=== PATIENT | female | born 1945 | race Caucasian/White ===

== ENCOUNTER 2016-12-11 16:43 | Emergency (ER) | payer OTHER ==
[~2016-12-11] VITALS: Ht 157.5 cm; Wt 68.0 kg
[~2016-12-11 16:43] MED LIST: CIPR500T4 PO; NEXI40CA PO; PROM25TA5 PO; XANA1TAB6 PO; blood pressure pill PO
[2016-12-11 16:45] VITALS: BP 153/74; PULSE 90; RESP 20; TEMP 99.4; O2SAT 96
[2016-12-11] MEDS ORDERED: PROM25TA5 PO (17:27)
[2016-12-11] MEDS ORDERED: XANA1TAB2 PO (17:27)
[2016-12-11] MEDS ORDERED: UNK BP MED PO (17:27)
--- NOTE | 2016-12-11 17:56 | RADRPT ---
EXAM DATE/TIME: 12/11/2016 17:44 [facility] COMPARISON: No previous studies available for comparison. INDICATIONS : Right wrist pain and inflammation. No known injury MEDICAL HISTORY : None. SURGICAL HISTORY : None. ENCOUNTER: Initial ACUITY: 1 day PAIN SCORE: 7/10 LOCATION: Right wrist. FINDINGS: There is no evidence of fracture or dislocation. Mineralization is normal. There's mild arthritic vidya nge. Mild dorsal soft tissue swelling. CONCLUSION: Soft tissue swelling without definite fracture Zachary Barahona MD on December 11, 2016 at 17:50 Board Certified Radiologist. This report was verified electronically.
[2016-12-11] MEDS ORDERED: KETOROLAC TROMETHAMINE 30 MG/ML (IVP) VIAL IV PUSH ONE (18:00)
[2016-12-11 18:16] LABS: AUTOMATED NEUTROPHIL # 5.3 TH/MM3 (1.8-7.7); BASOPHIL % 0.3 % (0.0-2.0); EOSINOPHIL # 0.1 TH/MM3 (0-0.4); EOSINOPHIL % 1.9 % (0.0-4.0); HEMATOCRIT 42.7 % (35.0-46.0); LYMPHOCYTE # 1.9 TH/MM3 (1.0-4.8); MEAN CELL VOLUME 91.2 FL (80.0-100.0); MEAN CORPUSCULAR HEMOGLOBIN 30.3 PG (27.0-34.0); MEAN CORPUSCULAR HGB CONC 33.2 % (32.0-36.0); MONO % 5.1 % (0.0-8.0); NEUT % 67.7 % (16.0-70.0); PLATELET COUNT 89 TH/MM3 (150-450); RED BLOOD COUNT 4.68 MIL/MM3 (4.00-5.30); RED CELL DISTRIBUTION WIDTH 15.4 % (11.6-17.2); WHITE BLOOD COUNT 7.8 TH/MM3 (4.0-11.0)
[2016-12-11 18:17] LABS: HEMO FLAGS AUTO DIFF
--- NOTE | 2016-12-11 18:29 | PD ---
HPI Chief Complaint: Pain: Acute or Chronic Time Seen by Provider: 18:24 Travel History International Travel<30 days: No Contact w/Intl Traveler<30days: No Traveled to known affect area: No History of Present Illness HPI 71-year-old female that presents to the ED for evaluation of pain and swelling to her right wrist with no injury. Per patient this is been ongoing since Friday. She has not seen anybody for this. Per patient is red and swelling and painful with movement and touch. She has not taken anything for this. She states that the pain is 6 out of 10. She states that she does have a history of gout but she does not believe that his gout because she hasn't had one episode in the last 20 years. She does not take anything to prevent gout. She states that she has not falling or done anything to cause the pain. The patient she reports that for the past 6 years since having surgery by Dr. Das she's been having some discomfort to the scars on her abdomen. Per patient she has never had scars like that before and she is concerned that it might be something else going on. Per patient his been ongoing for 6 years and only gets painful when somebody touches or moves on the scars. States that the pain on the scars is about 6 out of 10 and gets worse when she puts weight on the area or she moves to that side. She denies any bowel movement or urinary issues. No fevers chills or sweats. She has not seen her surgeon for this. She also reports that she's been having some bug bites on her left arm. EEG. Per patient she has noted anywhere else. Nobody else has this. She denies any recent travel. She does have allergies to aspirin, Percodan and sulfa. PFSH Past Medical History Arthritis: Yes Asthma: No Blood Disorders: No Anxiety: Yes Depression: Yes Heart Rhythm Problems: No Cancer: No Cardiac Catheterization: No High Cholesterol: No Chemotherapy: No Chest Pain: No Congestive Heart Failure: No COPD: No Cerebrovascular Accident: No Diabetes: No Diminished Hearing: No Endocrine: No Gastrointestinal Disorders: Yes (HX OF GERD, HIATAL HERNIA REPAIR ) GERD: Yes Genitourinary: No Hepatitis: No Hiatal Hernia: Yes Hypertension: Yes Immune Disorder: No Implanted Vascular Access Dvce: No Musculoskeletal: Yes (BACK/NECK PROBLEMS, CLAUDIO KNEE PROBLEMS,SPINAL STENOSIS, HNP) Neurologic: No Psychiatric: Yes (CLAUSTROPHOBIC) Reproductive: No Respiratory: No Seizures: Yes (FROM DRUG W/D) Thyroid Disease: No Tetanus Vaccination: Unknown Influenza Vaccination: No PNEUMOCCOCAL Vaccine (Year): 2 ?: Not Menopausal: Yes Tubal Ligation: Yes Past Surgical History Abdominal Surgery: Yes (PT STATES THE PT ONLY HAD 3 HERNIA OPERATIONS) AICD: No Appendectomy: Yes Arteriovenous Shunt: No Cardiac Surgery: No Cholecystectomy: Yes Coronary Artery Bypass Graft: No Ear Surgery: No Endocrine Surgery: No Eye Surgery: No Genitourinary Surgery: No Gynecologic Surgery: No Joint Replacement: No Neurologic Surgery: No Oral Surgery: No Pacemaker: No Thoracic Surgery: No Social History Alcohol Use: No Tobacco Use: No Substance Use: No Allergies-Medications (Allergen,Severity, Reaction): Coded Allergies: Percodan (Verified Allergy, Severe, 12/11/16) Sulfa (Verified Allergy, Severe, Itching, 12/11/16) Aspirin (Verified Allergy, Intermediate, 12/11/16) Reported Meds & Prescriptions Reported Meds & Active Scripts Active Diclofenac Sodium DR (Diclofenac Sodium) 75 Mg Tabdr 75 Mg PO BID Permethrin Topical (Permethrin) 5% Cream 1 Applic TOPICAL ONCE Tramadol (Tramadol HCl) 50 Mg Tab 50 Mg PO Q6H PRN Reported [Unk Bp Med] 2.5 Mg PO HS Phenergan (Promethazine HCl) 25 Mg Tab 25 Mg PO ONCE Xanax (Alprazolam) 1 Mg Tab 1 Mg PO Q8H PRN Review of Systems Except as stated in HPI: all other systems reviewed are Neg Physical Exam Narrative GENERAL: SKIN: Warm and dry. Patient does have insect bite like lesions to the left as well as the right arm. More pruritic on the left than the right. No other deformity noted. In addition she has also scars that appear to have healed on the abdomen appeared to be raised plaques that are darker in color to her skin color. There are tender on this area. Pain not reproducible anywhere else. Patient has no other deformity noted. HEAD: Atraumatic. Normocephalic. EYES: Pupils equal and round 4 mm reactive and accommodation. No scleral icterus. No injection or drainage. ENT: No nasal bleeding or discharge. Mucous membranes pink and moist. Tongue is midline. No uvula deviation. NECK: Trachea midline. No JVD. CARDIOVASCULAR: Regular rate and rhythm. No murmurs, S3, S4. RESPIRATORY: No accessory muscle use. Clear to auscultation. Breath sounds equal bilaterally. GASTROINTESTINAL: Abdomen soft, non-tender, nondistended. Hepatic and splenic margins not palpable. MUSCULOSKELETAL: Extremities without clubbing, cyanosis, or edema. No obvious deformities. Full range of motion of the upper and lower extremities with exception of the right wrist which she cannot flex secondary to discomfort. Patient does have an area of erythema and soft tissue swelling on the dorsal aspect of the right wrist. Erythema is blanchable. Slightly warm to touch. No obvious bony deformity noted. Patient has full range of motion of the digits. Patient has 2+ pulses on the radial and volar artery. Good capillary refill of all fingers. Neurovascular intact. NEUROLOGICAL: Awake and alert. No obvious cranial nerve deficits. Motor grossly within normal limits. Five out of 5 muscle strength in the arms and legs. Normal speech. PSYCHIATRIC: Appropriate mood and affect; insight and judgment normal. Data Data Last Documented VS Vital Signs Date Time Temp Pulse Resp B/P Pulse Ox O2 Delivery O2 Flow Rate FiO2 12/11/16 16:45 99.4 90 20 153/74 96 Room Air Orders Wrist, Complete ([id number]) (12/11/16 17:14) Westergren Sedimentation Rate (12/11/16 17:51) Complete Blood Count With Diff (12/11/16 17:51) Ketorolac Inj (Toradol Inj) (12/11/16 18:00) Labs Laboratory Tests Test 12/11/16 17:50 White Blood Count 7.8 TH/MM3 Red Blood Count 4.68 MIL/MM3 Hemoglobin 14.2 GM/DL Hematocrit 42.7 % Mean Corpuscular Volume 91.2 FL Mean Corpuscular Hemoglobin 30.3 PG Mean Corpuscular Hemoglobin 33.2 % Concent Red Cell Distribution Width 15.4 % Platelet Count 89 TH/MM3 Mean Platelet Volume 7.1 FL Neutrophils (%) (Auto) 67.7 % Lymphocytes (%) (Auto) 25.0 % Monocytes (%) (Auto) 5.1 % Eosinophils (%) (Auto) 1.9 % Basophils (%) (Auto) 0.3 % Neutrophils # (Auto) 5.3 TH/MM3 Lymphocytes # (Auto) 1.9 TH/MM3 Monocytes # (Auto) 0.4 TH/MM3 Eosinophils # (Auto) 0.1 TH/MM3 Basophils # (Auto) 0.0 TH/MM3 CBC Comment AUTO DIFF Differential Comment AUTO DIFF CONFIRMED Platelet Estimate LOW Platelet Morphology Comment NORMAL Erythrocyte Sedimentation Rate 53 mm/hr MDM Medical Decision Making Medical Screen Exam Complete: Yes Emergency Medical Condition: Yes Medical Record Reviewed: Yes Interpretation(s) Last Impressions Wrist X-Ray 12/11/16 1714 Signed Impressions: Service Date/Time: Sunday, December 11, 2016 17:44 - CONCLUSION: Soft tissue swelling without definite fracture Zachary Barahona MD CBC Diagram 12/11/16 17:50 ESR of 50 Differential Diagnosis Gout versus fracture versus cellulitis versus chronic pain versus chronic scars versus scabies versus insect bites Narrative Course 71-year-old female that presents to the ED for evaluation of right wrist swelling and pain as well as insect bites as well as painful scars on her abdomen. Patient was properly examined and was found to have signs and symptoms which appear to be more consistent with gout on the right wrist and less likely infectious. Erythema and swelling is blanchable. Patient has no tachycardia or signs of fever. Labs and imaging were ordered. In regards to her insect bites that appear to be related to insects. No sign of other acute disease. At this time I recommend treating with permethrin cream to cover for scabies of the less likely. In regards to her pain on her scars on her abdomen did not see any sign of acute infection. Per patient this is been ongoing for 6 years. Patient specifically asked me to see if I could contact Dr. Das to see if he could come here and see her to evaluate her for the scars. At this time I do not believe that this or infected or the require any acute treatment. I do recommend close follow with Dr. Das since he is the one who did the surgery. She agrees with this. I will give patient information for Dr. Das' s office so she can follow with him for this. In regards to the main complaint which was the right wrist pain and swelling x-ray and labs were essentially unremarkable. Patient was reassured. From history and physical I think that this is likely gout. Patient at this time will be treated with pain medication as well as NSAIDs. She will given a prescription for permethrin cream. Patient agrees with plan. Follow with PCP. See ED if worsening symptoms. Case was discussed with Dr Pulido who agrees with plan. Diagnosis Primary Impression: Gout Qualified Code: M10.041 - Acute idiopathic gout of right hand Additional Impressions: Insect bite Qualified Code: W57.XXXA - Insect bite, initial encounter Painful scar Referrals: Garrett Das MD Patient Instructions: General Instructions Additional Instructions: Follow-up with Dr. Das for years abdominal scars. See ED for worsening symptoms. Take medications as prescribed. Do not drink or drive while taking pain medication. Med/Other Pt SpecificInfo: Prescription(s) given Scripts Diclofenac Sodium DR 75 Mg Tabdr75 Mg PO BID #20 TAB Ref 0 Prov:Tiara Pulido MD 12/11/16 Permethrin Topical 5% Cream1 Applic TOPICAL ONCE #1 TUBE Ref 0 Prov:Tiara Pulido MD 12/11/16 Tramadol 50 Mg Tab50 Mg PO Q6H PRN (PAIN) #14 TAB Ref 0 Prov:Tiara Pulido MD 12/11/16 Disposition: 01 DISCHARGE HOME Condition: Stable Lul Gipson Dec 11, 2016 18:29
[2016-12-11 18:53] LABS: PLATELET ESTIMATE SMEAR LOW (NORMAL); PLATELET MORPHOLOGY NORMAL (NORMAL); SCAN/DIFF AUTO DIFF CONFIRMED
[2016-12-11] MEDS ORDERED: TRAM50TA PO (19:06)
[2016-12-11] MEDS ORDERED: DICL75TA PO (19:06)
[2016-12-11] MEDS ORDERED: PERM5CRE TOPICAL (19:06)
== END 2016-12-11 21:47 | disposition home or self-care (01) ==
LOC: NEPC 16:43
DX: M10.041 Idiopathic gout, right hand (principal); S30.861A Insect bite (nonvenomous) of abdominal wall, initial encounter; W57.XXXA Bitten or stung by nonvenomous insect and other nonvenomous arthropods, initial encounter
CPT/HCPCS: 73110; 85025; 85652; 96374; 99283; J1885

== ENCOUNTER 2016-12-24 05:09 | Inpatient (IN) | payer OTHER, MEDICARE ==
[2016-12-24] VITALS (9 sets, daily range): BP systolic 115–155; BP diastolic 56–67; PULSE 70–86; RESP 16–20; TEMP 98.6; O2SAT 96–99
[~2016-12-24] VITALS: Ht 157.5 cm; Wt 73.0 kg
[~2016-12-24 05:09] MED LIST changes: -CIPR500T4 PO; +DICL75TA PO; -NEXI40CA PO; +PERM5CRE TOPICAL; +TRAM50TA PO; +UNK BP MED PO; +XANA1TAB2 PO; -XANA1TAB6 PO; -blood pressure pill PO
--- NOTE | 2016-12-24 05:43 | PD ---
HPI Chief Complaint: Fall Time Seen by Provider: 05:34 Travel History International Travel<30 days: No Contact w/Intl Traveler<30days: No Traveled to known affect area: No History of Present Illness HPI 71-year-old female was brought in by her son for slurred speech and weakness. Patient's son states that she woke up earlier this morning and went to the bathroom and fell. Patient lives with another relative. Patient's son came over to the house and found patient to be confused, with slurred speech and weakness. Patient was brought by private vehicle to the emergency room. Patient's son states that he first saw the patient about an hour and a half prior to arrival. Patient has history of hypertension. Patient's on reported no history of diabetes or dyslipidemia. Patient is a nonsmoker. No history of previous TIA or CVA. PFSH Past Medical History Arthritis: Yes Asthma: No Blood Disorders: No Anxiety: Yes Depression: Yes Heart Rhythm Problems: No Cancer: No Cardiac Catheterization: No High Cholesterol: No Chemotherapy: No Chest Pain: No Congestive Heart Failure: No COPD: No Cerebrovascular Accident: No Diabetes: No Diminished Hearing: No Endocrine: No GERD: Yes Genitourinary: No Hepatitis: No Hiatal Hernia: Yes Hypertension: Yes Immune Disorder: No Implanted Vascular Access Dvce: No Musculoskeletal: Yes (BACK/NECK PROBLEMS, CLAUDIO KNEE PROBLEMS,SPINAL STENOSIS, HNP) Neurologic: No Psychiatric: Yes (CLAUSTROPHOBIC) Reproductive: No Respiratory: No Seizures: Yes (FROM DRUG W/D) Thyroid Disease: No Tetanus Vaccination: Unknown Influenza Vaccination: No PNEUMOCCOCAL Vaccine (Year): 2 ?: Not Menopausal: Yes Tubal Ligation: Yes Past Surgical History Abdominal Surgery: Yes (PT STATES THE PT ONLY HAD 3 HERNIA OPERATIONS) AICD: No Appendectomy: Yes Arteriovenous Shunt: No Cardiac Surgery: No Cholecystectomy: Yes Coronary Artery Bypass Graft: No Ear Surgery: No Endocrine Surgery: No Eye Surgery: No Genitourinary Surgery: No Gynecologic Surgery: No Joint Replacement: No Neurologic Surgery: No Oral Surgery: No Pacemaker: No Thoracic Surgery: No Other Surgery: Yes Family History Family Myocardial Infarction: Yes (SISTER OPEN HEART) Social History Alcohol Use: No Tobacco Use: No Substance Use: No Allergies-Medications (Allergen,Severity, Reaction): Coded Allergies: Percodan (Verified Allergy, Severe, 12/24/16) Sulfa (Verified Allergy, Severe, Itching, 12/24/16) Aspirin (Verified Allergy, Intermediate, 12/24/16) Reported Meds & Prescriptions Reported Meds & Active Scripts Active Reported [Unk Bp Med] 2.5 Mg PO HS Phenergan (Promethazine HCl) 25 Mg Tab 25 Mg PO ONCE Xanax (Alprazolam) 1 Mg Tab 1 Mg PO Q8H PRN Review of Systems General / Constitutional: No: Fever Eyes: No: Visual changes HENT: No: Headaches Cardiovascular: No: Chest Pain or Discomfort Respiratory: No: Shortness of Breath Gastrointestinal: No: Abdominal Pain Genitourinary: No: Dysuria Musculoskeletal: No: Pain Skin: No Rash Neurologic: Positive: Change in Mentation, Slurred Speech, No: Weakness Psychiatric: No: Depression Endocrine: No: Polydipsia Hematologic/Lymphatic: No: Easy Bruising Physical Exam Narrative GENERAL: Well-nourished, well-developed patient. SKIN: Focused skin assessment warm/dry. HEAD: Normocephalic. EYES: No scleral icterus. No injection or drainage. Pupils 2 mm equal reactive. NECK: Supple, trachea midline. No JVD or lymphadenopathy. CARDIOVASCULAR: Regular rate and rhythm without murmurs, gallops, or rubs. RESPIRATORY: Breath sounds equal bilaterally. No accessory muscle use. GASTROINTESTINAL: Abdomen soft, non-tender, nondistended. MUSCULOSKELETAL: No cyanosis, or edema. BACK: Nontender without obvious deformity. No CVA tenderness. Neurologic exam: Patient is awake with slurred speech. No obvious facial drooping or focal neurological deficit. Deep tendon reflexes 2+ and equal. Negative Babinski. Data Data Last Documented VS Vital Signs Date Time Temp Pulse Resp B/P Pulse Ox O2 Delivery O2 Flow Rate FiO2 12/24/16 05:41 99 Room Air 12/24/16 05:25 83 16 124/59 12/24/16 05:10 98.6 Orders Electrocardiogram (12/24/16 05:34) Complete Blood Count With Diff (12/24/16 05:34) Comprehensive Metabolic Panel (12/24/16 05:34) Prothrombin Time / Inr (Pt) (12/24/16 05:34) Act Partial Throm Time (Ptt) (12/24/16 05:34) Urinalysis - C+S If Indicated (12/24/16 05:34) Chest, Single Ap (12/24/16 05:34) Ct Brain W/O Iv Contrast(Rout) (12/24/16 05:34) Iv Access Insert/Monitor (12/24/16 05:34) Ecg Monitoring (12/24/16 05:34) Oximetry (12/24/16 05:34) Urinary Catheter Insert/Apply (12/24/16 05:34) Sodium Chlor 0.9% 1000 Ml Inj (Ns 1000 M (12/24/16 05:45) [place] (12/24/16 05:34) Mri Brain W/O Contrast (12/24/16 05:55) Mra Brain W/O Contrast (Cow) (12/24/16 05:55) Mra Carotids W Contrast (12/24/16 05:55) Aspirin Supp (Aspirin Supp) (12/24/16 06:00) Labs Laboratory Tests Test 12/24/16 05:40 White Blood Count 7.4 TH/MM3 Red Blood Count 4.24 MIL/MM3 Hemoglobin 12.9 GM/DL Hematocrit 38.6 % Mean Corpuscular Volume 91.1 FL Mean Corpuscular Hemoglobin 30.3 PG Mean Corpuscular Hemoglobin 33.3 % Concent Red Cell Distribution Width 15.5 % Platelet Count 103 TH/MM3 Mean Platelet Volume 7.1 FL Neutrophils (%) (Auto) 56.1 % Lymphocytes (%) (Auto) 35.5 % Monocytes (%) (Auto) 4.5 % Eosinophils (%) (Auto) 3.0 % Basophils (%) (Auto) 0.9 % Neutrophils # (Auto) 4.2 TH/MM3 Lymphocytes # (Auto) 2.6 TH/MM3 Monocytes # (Auto) 0.3 TH/MM3 Eosinophils # (Auto) 0.2 TH/MM3 Basophils # (Auto) 0.1 TH/MM3 CBC Comment DIFF FINAL Differential Comment MDM Medical Decision Making Medical Screen Exam Complete: Yes Emergency Medical Condition: Yes Interpretation(s) 5:43 AM. EKG shows sinus rhythm nonspecific ST-T wave change. Differential Diagnosis Differential diagnosis including TIA, CVA, neuropathy, electrolyte imbalance, sepsis. Narrative Course 71-year-old female with unknown time of onset of neurologic symptoms including slurred speech and confusion and generalized weakness. Normal saline solution 70 cc an hour. Head of bed flat. O2 2 L nasal cannula. Diagnosis Primary Impression: Acute CVA (cerebrovascular accident) Admitting Information Admitting Physician Requests: Admit Que Colbert MD Dec 24, 2016 05:43
[2016-12-24 05:55] LABS: AUTOMATED NEUTROPHIL # 4.2 TH/MM3 (1.8-7.7); BASOPHIL # 0.1 TH/MM3 (0-0.2); BASOPHIL % 0.9 % (0.0-2.0); EOSINOPHIL # 0.2 TH/MM3 (0-0.4); HEMATOCRIT 38.6 % (35.0-46.0); HEMO FLAGS DIFF FINAL; LYMPH % 35.5 % (9.0-44.0); LYMPHOCYTE # 2.6 TH/MM3 (1.0-4.8); MEAN CELL VOLUME 91.1 FL (80.0-100.0); MEAN CORPUSCULAR HEMOGLOBIN 30.3 PG (27.0-34.0); MEAN CORPUSCULAR HGB CONC 33.3 % (32.0-36.0); MONO % 4.5 % (0.0-8.0); NEUT % 56.1 % (16.0-70.0); PLATELET COUNT 103 TH/MM3 (150-450); RED BLOOD COUNT 4.24 MIL/MM3 (4.00-5.30); RED CELL DISTRIBUTION WIDTH 15.5 % (11.6-17.2); WHITE BLOOD COUNT 7.4 TH/MM3 (4.0-11.0)
[2016-12-24] MEDS ORDERED: ASPIRIN 300 MG SUPP RECTAL ONE (06:00)
--- NOTE | 2016-12-24 06:00 | RADRPT ---
EXAM DATE/TIME: 12/24/2016 05:45 [facility] COMPARISON: CT BRAIN W/O CONTRAST, November 26, 2015, 15:38. INDICATIONS : Fall. Altered mental status. RADIATION DOSE: 37.30 CTDIvol (mGy) MEDICAL HISTORY : Hypertension. Gastroesophageal reflux disease. Hernia, hiatal. SURGICAL HISTORY : Appendectomy. Cholecystectomy.Tubal ligation. ENCOUNTER: Initial ACUITY: 1 day PAIN SCALE: 0/10 LOCATION: cranial TECHNIQUE: Multiple contiguous axial images were obtained of the head. Using automated exposure control and adj ustment of the mA and/or kV according to patient size, radiation dose was kept as low as reasonably a chievable to obtain optimal diagnostic quality images. FINDINGS: CEREBRUM: The ventricles are normal for age. No evidence of midline shift, mass lesion, hemorrhage or acute in farction. No extra-axial fluid collections are seen. POSTERIOR FOSSA: The cerebellum and brainstem are intact. The 4th ventricle is midline. The cerebellopontine angle i s unremarkable. EXTRACRANIAL: The visualized portion of the orbits is intact. SKULL: The calvaria is intact. No evidence of skull fracture. CONCLUSION: Normal examination. Riley Delgado MD on December 24, 2016 at 5:58 Board Certified Radiologist. This report was verified electronically.
[2016-12-24 06:07] LABS: APTT (PATIENT) 29.1 SEC (24.3-30.1); PROTHROMBIN TIME - PATIENT 10.7 SEC (9.8-11.6)
[2016-12-24] MEDS: SODIUM CHLOR 0.9% 1000 ML INJ 1,000 ML IV SCH ×5 (06:07→21:59)
--- NOTE | 2016-12-24 06:15 | RADRPT ---
EXAM DATE/TIME: 12/24/2016 05:47 [facility] COMPARISON: No previous studies available for comparison. INDICATIONS : Shortness of breath. MEDICAL HISTORY : Hypertension. Gastroesophageal reflux disease. SURGICAL HISTORY : None. ENCOUNTER: Initial ACUITY: 1 day PAIN SCORE: Non-responsive. LOCATION: Bilateral chest FINDINGS: A single view of the chest demonstrates the lungs to be symmetrically aerated without evidence of mas s, infiltrate or effusion. The cardiomediastinal contours are unremarkable. Osseous structures are intact. Tortuous aorta with marked atherosclerotic calcifications CONCLUSION: Small lung volumes bilaterally. No infiltrate or mass. Riley Delgado MD on December 24, 2016 at 6:13 Board Certified Radiologist. This report was verified electronically.
[2016-12-24 06:23] LABS: ALT (GPT) 37 U/L (10-53); ANION GAP 8 MEQ/L (5-15); AST (GOT) 32 U/L (15-37); BICARBONATE 25.9 MEQ/L (21.0-32.0); BLOOD UREA NITROGEN 11 MG/DL (7-18); CHLORIDE 106 MEQ/L (98-107); GLOMERULAR FILTRATION RATE 83 ML/MIN (>89); POTASSIUM 4.2 MEQ/L (3.5-5.1); SODIUM (NA) 140 MEQ/L (136-145)
[2016-12-24 06:26] LABS: ALKALINE PHOSPHATASE 176 U/L (45-117); TOTAL BILIRUBIN ADULT 0.2 MG/DL (0.2-1.0)
[2016-12-24 06:53] LABS: BLOOD, URINE NEG (NEG); GLUCOSE,URINE NEG (NEG); KETONE, URINE NEG (NEG); NITRITE,URINE NEG (NEG); PH, URINE 5.5 (5.0-8.5); SQUAMOUS EPITHELIAL CELL URINE <1 /hpf (0-5); URINE COLOR LIGHT-YELLOW (YELLW/STRAW)
[2016-12-24 07:01] LABS: COMMENT (UR) CULT NOT INDICATED; CULTURE IF INDICATED CULT NOT INDICATED
[2016-12-24] MEDS ORDERED: NALOXONE HCL 0.4 MG/ML AMP IV PRN (07:30)
[2016-12-24] MEDS ORDERED: SODIUM CHLORIDE 0.9% FLUSH 10 ML FLUSH IV FLUSH PRN (07:30)
[2016-12-24] MEDS: ENOXAPARIN SODIUM 40 MG/0.4 ML SYRINGE SQ SCH (07:30)
[2016-12-24] MEDS ORDERED: ONDANSETRON HCL 4 MG/2 ML VIAL IVP PRN (07:30)
[2016-12-24] MEDS ORDERED: DEXTROSE 50% IN WATER 50 ML VIAL(D50) IV PUSH PRN (07:30)
[2016-12-24] MEDS ORDERED: ACETAMINOPHEN 325 MG TAB PO PRN (07:30)
[2016-12-24] MEDS ORDERED: BISACODYL 10 MG SUPP RECTAL PRN (07:30)
[2016-12-24] MEDS: DOCUSATE SODIUM 100 MG CAP PO SCH ×2 (07:30→20:10)
[2016-12-24] MEDS ORDERED: GLUCAGON 1 MG/ML VIAL IM/SQ PRN (07:30)
--- NOTE | 2016-12-24 07:41 | EKG ---
Date Performed: 12/24/2016 Time Performed: 05:30:52 PTAGE: 71 years EKG: Sinus rhythm NORMAL ECG NO PREVIOUS TRACING DOCTOR: Amarjit Jiménez Interpretating Date/Time 12/24/2016 07:39:05
--- NOTE | 2016-12-24 08:04 | HHI.HP ---
[facility] Primary Care Physician Zachary Mckeon M.D. Admission Diagnosis acute CVA Diagnoses: Chief Complaint: Slurred speech and Status post fall. Travel History International Travel<30 Days: No Contact w/Intl Traveler <30 Da: No Traveled to Known Affected Are: No History of Present Illness This is a pleasant 71 y/o Female with GERD, Hiatal hernia status post Whipple procedure, Depression Anxiety Disorder, Gout, Hypertension, Asthma, Previous Cardiac Cath 2002 with possible CAD, Anemia Degenerative Disc disease and spinal stenosis, Thrombocytopenia, Previous Admissions for Benzodiazepine Withdrawal, history of Back Surgery, Cholecystectomy, Gastric volvulus, partial Small Bowel Resection admitted also in the past status post fall, on this opportunity she was brought in by her Son for Slurred speech and weakness, Patient's son states that she woke up earlier this morning and went to the bathroom and fell. Patient lives with another relative. Patient's son came over to the house and found patient to be confused, with slurred speech and weakness. Patient was brought by private vehicle to the emergency room. Patient's son states that he first saw the patient about an hour and a half prior to arrival.Patient's on reported no history of diabetes or dyslipidemia. Patient is a nonsmoker. No history of previous TIA or CVA. patient seen in the Emergency Room in the presence of her Son Mr. Marino Torres, as per patient she had a mechanical fall, no previous signs like dizziness, Lightheadedness. her son found her Confused and disoriented once he arrived to her home where she lives with her Adopted Daughter, 15 years of age, he was called at 4:30 am. when she refused to go to the hospital with EMS. Past Family Social History Past Medical History GERD Hiatal hernia for which she had Whipple procedure Depression Gout Anxiety Hypertension Asthma Previous cardiac catheterization in 2002 with possible coronary artery disease Degenerative disc disease and spinal stenosis Gastritis. Thrombocytopenia Anemia. Previous admissions for benzodiazepine withdrawal Past Surgical History Back surgery, cholecystectomy. Gastric volvulus. Partial small bowel resection. Appendectomy Reported Medications Reported Meds & Active Scripts Active Reported [Unk Bp Med] 2.5 Mg PO HS Phenergan (Promethazine HCl) 25 Mg Tab 25 Mg PO ONCE Xanax (Alprazolam) 1 Mg Tab 1 Mg PO Q8H PRN Allergies: Coded Allergies: Percodan (Verified Allergy, Severe, 12/24/16) Sulfa (Verified Allergy, Severe, Itching, 12/24/16) Aspirin (Verified Allergy, Intermediate, 12/24/16) Active Ordered Medications Current Medications Medications (Trade) Dose Ordered Sig/Danny Route Start Time Stop Time Status Last Admin Sodium Chloride 1,000 ml @ 70 mls/hr [id number] IV 12/24/16 05:45 12/24/16 06:07 (NS 1000 ml Inj) 1,000 ml @ 100 mls/hr Q10H IV 12/24/16 07:28 (NS Flush) 2 ml UNSCH PRN IV FLUSH 12/24/16 07:30 (NS Flush) 2 ml BID IV FLUSH 12/24/16 09:00 (Tylenol) 650 mg Q4H PRN PO 12/24/16 07:30 (Zofran Inj) 4 mg Q6H PRN IVP 12/24/16 07:30 (Dulcolax Supp) 10 mg DAILY PRN RECTAL 12/24/16 07:30 (Colace) 100 mg Q12H PO 12/24/16 07:30 (Lovenox Inj) 40 mg Q24H SQ 12/24/16 07:30 UNV (Narcan Inj) 0.4 mg UNSCH PRN IV 12/24/16 07:30 (Aspirin) 325 mg DAILY PO 12/25/16 09:00 UNV (D50w (Vial) Inj) 25 ml UNSCH PRN IV PUSH 12/24/16 07:30 (Glucagon Inj) 1 mg UNSCH PRN IM/SQ 12/24/16 07:30 Family History Sister with CAD Father with CAD Social History Lives in an apartment with her Adopted Daughter 15 years of age Denies any toxic habits. Physical Exam Vital Signs Vital Signs Date Time Temp Pulse Resp B/P Pulse Ox O2 Delivery O2 Flow Rate FiO2 12/24/16 05:41 99 Room Air 12/24/16 05:25 83 16 124/59 97 Room Air 12/24/16 05:10 98.6 86 18 132/62 96 Physical Exam GENERAL: This is a well-nourished, well-developed patient, in no apparent distress. SKIN: No rashes, ecchymoses or lesions. Cool and dry. HEAD: Atraumatic. Normocephalic. No temporal or scalp tenderness. EYES: Pupils equal round and reactive. Extraocular motions intact. No scleral icterus. No injection or drainage. ENT: Nose without bleeding, purulent drainage or septal hematoma. NECK: Trachea midline. No JVD or lymphadenopathy. Supple, nontender, no meningeal signs. CARDIOVASCULAR: Regular rate and rhythm without murmurs, gallops, or rubs. RESPIRATORY: Clear to auscultation. Breath sounds equal bilaterally. No wheezes , rales, or rhonchi. GASTROINTESTINAL: Abdomen soft, non-tender, nondistended. No hepato-splenomegaly , or palpable masses. No guarding. MUSCULOSKELETAL: Extremities without clubbing, cyanosis, or edema. NEUROLOGICAL: Awake and alert. Cranial nerves II through XII intact. Slurred speech Laboratory Laboratory Tests Test 12/24/16 12/24/16 05:40 06:00 White Blood Count 7.4 Red Blood Count 4.24 Hemoglobin 12.9 Hematocrit 38.6 Mean Corpuscular Volume 91.1 Mean Corpuscular Hemoglobin 30.3 Mean Corpuscular Hemoglobin 33.3 Concent Red Cell Distribution Width 15.5 Platelet Count 103 Mean Platelet Volume 7.1 Neutrophils (%) (Auto) 56.1 Lymphocytes (%) (Auto) 35.5 Monocytes (%) (Auto) 4.5 Eosinophils (%) (Auto) 3.0 Basophils (%) (Auto) 0.9 Neutrophils # (Auto) 4.2 Lymphocytes # (Auto) 2.6 Monocytes # (Auto) 0.3 Eosinophils # (Auto) 0.2 Basophils # (Auto) 0.1 CBC Comment DIFF FINAL Differential Comment Prothrombin Time 10.7 Prothromb Time International 1.0 Ratio Activated Partial 29.1 Thromboplast Time Sodium Level 140 Potassium Level 4.2 Chloride Level 106 Carbon Dioxide Level 25.9 Anion Gap 8 Blood Urea Nitrogen 11 Creatinine 0.69 Estimat Glomerular Filtration 83 Rate Random Glucose 119 Calcium Level 8.5 Total Bilirubin 0.2 Aspartate Amino Transf 32 (AST/SGOT) Alanine Aminotransferase 37 (ALT/SGPT) Alkaline Phosphatase 176 Total Protein 7.3 Albumin 3.3 Urine Color LIGHT-YELLOW Urine Turbidity CLEAR Urine pH 5.5 Urine Specific [place] 1.006 Urine Protein NEG Urine Glucose (UA) NEG Urine Ketones NEG Urine Occult Blood NEG Urine Nitrite NEG Urine Bilirubin NEG Urine Urobilinogen LESS THAN 2.0 Urine Leukocyte Esterase NEG Urine Squamous Epithelial <1 Cells Microscopic Urinalysis Comment CULT NOT INDICATED Result Diagram: 12/24/16 0540 12/24/16 0540 Imaging Last Impressions Head CT 12/24/16533 Signed Impressions: Service Date/Time: Saturday, December 24, 2016 05:45 - CONCLUSION: Normal examination. Riley Delgado MD Chest X-Ray 12/24/16533 Signed Impressions: Service Date/Time: Saturday, December 24, 2016 05:47 - CONCLUSION: Small lung volumes bilaterally. No infiltrate or mass. Riley Delgado MD Assessment and Plan Assessment and Plan 1. Acute Metabolic Encephalopathy improving probable related to TIA. 2. Status post Fall mechanical fall 3. Questionable TIA, asked for MRI, MRA, negative CT brain, continue Stroke management with Aspirin she has listed Aspirin allergy but already received this medicine in am in Emergency room and no side effects so far Cardiac monitoring, Cardiac Enzymes, Echocardiogram, Neurology consult, Vitamin B12, Folate levels, Seizure precautions, fall precautions. PT. OT and Speech therapy, at this time NPO 4. Anxiety disorder/Depression stable 5. Chronic Pain syndrome/spinal stenosis not taking narcotics at home 6. Hypertension controlled without medicines. 7. Chronic Abdominal pain followed by Doctor Virgen Melissa GI specialist DVT Prophylaxis with Lovenox Code Status Full Code Discussed Condition With Home medications reviewed and initiated as indicated Plan of care has been discussed with the patient and her son Mr. Marino Torres gave me his phone number [phone] and their questions have been answered in detail. Further management of the patient will be dependent on hospital course. Discussed with Emergency Medicine Doctor Morales Sierra MD Dec 24, 2016 08:04
[2016-12-24] MEDS: SODIUM CHLORIDE 0.9% FLUSH 10 ML FLUSH IV FLUSH SCH ×2 (09:00→21:00)
[2016-12-24] MEDS ORDERED: LORazepam 2 MG/ML VIAL IM ONE (09:15)
--- NOTE | 2016-12-24 10:59 | RADRPT ---
EXAM DATE/TIME: 12/24/2016 10:07 [facility] COMPARISON: CT BRAIN W/O CONTRAST, December 24, 2016, 5:45. INDICATIONS : Slurred speech. MEDICAL HISTORY : Hypertension. Seizures. SURGICAL HISTORY : Inguinal hernia repair. ENCOUNTER: Initial ACUITY: 2 day PAIN SCORE: 0/10 LOCATION: Head TECHNIQUE: Multiplanar, multisequence MRI of the brain was performed without contrast. FINDINGS: CEREBRUM: The ventricles are normal for age. No evidence of midline shift, mass lesion, hemorrhage or acute in farction. No extraaxial fluid collections are seen. The pituitary gland and suprasellar cistern are normal in configuration. WHITE MATTER: No significant signal abnormalities are seen in the white matter. POSTERIOR FOSSA: The cerebellum and brainstem are intact. The 4th ventricle is midline. The cerebellopontine angle is unremarkable. The cerebellar tonsils are normal in position. DIFFUSION IMAGING: No focal areas of restricted diffusion are seen. No evidence of acute infarction. EXTRACRANIAL: The visualized portions of the orbits and paranasal sinuses are unremarkable. CONCLUSION: Negative noncontrast MR of the brain. David Little MD on December 24, 2016 at 10:56 Board Certified Radiologist. This report was verified electronically.
[2016-12-24] MEDS: INSULIN ASPART SUPPLEMENTAL SCALE SQ SCH ×3 (11:00→21:00)
--- NOTE | 2016-12-24 11:01 | RADRPT ---
EXAM DATE/TIME: 12/24/2016 10:07 [facility] COMPARISON: No previous studies available for comparison. INDICATIONS : Slurred speech. MEDICAL HISTORY : Hypertension. Seizures. SURGICAL HISTORY : Inguinal hernia repair. ENCOUNTER: Initial ACUITY: 2 day PAIN SCORE: 0/10 LOCATION: Head Please note a normal MRA of the brain does not entirely exclude the possibility of a small aneurysm, nor the possibility of distal intracranial vessel disease. TECHNIQUE: 3D time of flight MRA was performed. Source images, multiplanar STS MIP, and 3D volume MIP reconstru ctions were reviewed. FINDINGS: There is excellent visualization of the major intracranial arteries out to the second-order branch ve ssels. There is no evidence for aneurysm, vessel truncation or stenosis, and no evidence for vascula r malformation. No flow seen in the anterior communicating artery or in either PCOM. CONCLUSION: 1. No vessel truncation or aneurysm. 2. Incomplete [place] of [place]. David Little MD on December 24, 2016 at 10:57 Board Certified Radiologist. This report was verified electronically.
[2016-12-24] MEDS ORDERED: GADODIAMIDE PF 287 MG/ML 20 ML VIAL (for RAD MRI) IV ONE (11:15)
--- NOTE | 2016-12-24 11:25 | RADRPT ---
EXAM DATE/TIME: 12/24/2016 10:07 [facility] COMPARISON: MRI BRAIN W/O CONTRAST, December 24, 2016, 10:07. INDICATIONS : Stroke. CONTRAST: 20 cc Omniscan (gadodiamide) IV MEDICAL HISTORY : Seizures. Hypertension. SURGICAL HISTORY : Inguinal hernia repair. ENCOUNTER: Initial ACUITY: 2 day PAIN SCORE: 0/10 LOCATION: neck Percent stenosis is calculated using the diameter of the stenotic region over the diameter of the nor mal distal internal carotid artery. TECHNIQUE: Bolus infused MRA of the extracranial circulation was performed using a neurovascular coil. Post pro cessing was performed including rotating subvolume maximum intensity projections of each carotid johnathon ry, rotating full volume maximum intensity projections of both carotid arteries, sagittal and coronal sliding thin slab reformations of each carotid artery, and left oblique sliding thin slab reformatio n through the aortic arch to include the origin of the arch branch vessels.FINDINGS: AORTIC ARCH: There is a three vessel origin of the great vessels from the aorta. No evidence of ostial narrowing. RIGHT CAROTID: Mild eccentric plaque is identified in the proximal internal carotid artery. Mild narrowing in the 30 -49% range as noted. There is no evidence of hemodynamically significant stenosis. LEFT CAROTID: Mild eccentric plaque is identified in the proximal internal carotid artery. There is mild narrowing approximately 30%. There is no evidence of hemodynamically significant stenosis. VERTEBRALS: The vertebral arteries have a symmetric diameter. The vertebral artery origins are not well-visualize d however no stenotic lesions above the origins are seen. CONCLUSION: Mild atherosclerotic vascular disease with [id number] proximal internal carotid artery narrowing on the right and mild internal carotid artery narrowing of the left. Poor visualization of the vertebral artery origins. No evidence of hemodynamically significant stenosis. Familia Sawyer MD on December 24, 2016 at 11:19 Board Certified Radiologist. This report was verified electronically.
[2016-12-24 11:59] LABS: CREATINE KINASE 40 U/L (26-192)
--- NOTE | 2016-12-24 12:11 | MB ---
cc: WANDA MOFFETT M.D. DATE OF CONSULTATION 12/24/2016 DATE OF 1945 AGE [age] years old REASON FOR CONSULTATION TIA most likely. HISTORY OF PRESENT ILLNESS This is a 71-year-old woman who comes in with a fall and slurred speech concerning for TIA. Family member that is in the room states that her speech is greatly improved. PAST MEDICAL HISTORY 1. Reflux. 2. Hiatal hernia, post Whipple procedure. 3. Depression, anxiety. 4. Gout. 5. Hypertension. 6. Asthma. 7. Cardiac cath in 2002 with possible heart disease. 8. Anemia. 9. Spinal stenosis. 10. Thrombocytopenia. 11. She has had from prior admissions with benzodiazepine withdrawal per chart. Apparently she woke up earlier in the morning, went to the bathroom and fell. She lives with her daughter who is a 17-year-old. Apparently the son came and found her confused in the house with some slurring of speech and diffuse weakness, brought her to the ER. He states she is much improved. She denies feeling weak currently. Denies headache, shortness of breath, weakness, numbness or tingling. Denies any speech issues. She admits to hitting her head but denies any cut or pain. PAST SURGICAL HISTORY 1. Back surgery. 2. Cholecystectomy. 3. Gastric volvulus. Partial small bowel resection. 4. Appendectomy. HOME MEDS Reported as Xanax and Phenergan. ALLERGIES PERCODAN. SULFA. ASPIRIN. FAMILY HISTORY Heart disease in the sister and the father. SOCIAL HISTORY Lives with her daughter. Denies any alcohol or tobacco. PHYSICAL EXAMINATION VITALS: Temperature 98.6, pulse 83, respiratory rate 16, blood pressure 124/59, sating at 99% on room air. NECK: Supple. No appreciable bruits. HEART: Regular. LUNGS: Appear clear. NEUROLOGIC: She is awake, alert, oriented. Pupils are reactive. Visual bartholomew full. Face symmetrical. Tongue midline. She admits to some blurring of vision but states she needs to have some eye surgery. No visual field loss. She is not dysarthric nor aphasic. She is edentulous. Motor: No drift or leg lag. Cerebellar intact. DTRs are 1+, sensory normal. Toes are both downgoing. Gait is withheld at this time. LABORATORY DATA Labs are reviewed. Her platelet count is 103,000. Coag panel was unremarkable. Chemistries: Glucose 119, alk phos 176, albumin 3.3. Urine is negative. She did have a chest x-ray that shows small lung volumes bilaterally but no infiltration or mass. CT of the head was unremarkable. IMPRESSION Status post fall, etiology unknown. Possible TIA. RECOMMENDATIONS 1. As discussed with the ED physician, recommend getting a TIA workup. She will have an MRI of the brain, MRA of the [place] of [place], carotid ultrasound, 2-D echo. Will get a lipid panel. 2. THERE IS SOME ALLERGY TO ASPIRIN. I am not sure what it is but if it is GI upset, then certainly a baby aspirin can be initiated. 3. Lovenox for DVT prophylaxis. 4. Permissible hypertension. 5. PT, OT, speech therapy evaluation. 6. Depending on the findings at this point in time, further recommendations will be made accordingly. She may need telemetry, she may need a Holter monitor as well and further recommendations to be made accordingly. MD JEFFERY Barbosa/JUNE /9:46 AM /12:01 PM
--- NOTE | 2016-12-24 15:36 | EC ---
Study Study Date:12/24/2016 STUDY CONCLUSIONS SUMMARY - Left ventricle: The cavity size was normal. Wall thickness was normal. Systolic function was normal. The estimated ejection fraction was in the range of 55% to 60%. Wall motion was normal; there were no regional wall motion abnormalities. - Aortic valve: Valve area: 2.44cm^2 (Vmax). If LV function is below 40, please consider prescribing an ACEI or ARB or document rationale for non-use. PROCEDURE DATA STUDY STATUS: Elective. Procedure: Transthoracic echocardiography. Image quality was poor. Scanning was performed from the parasternal acoustic windows. Study completion: The patient tolerated the procedure well. Transthoracic echocardiography. M-mode, complete 2D, complete spectral Doppler, and color Doppler. Height: Height: 62in. Weight: Weight: 159.7lb. Body mass index: BMI: 29.3kg/m^2. Body surface area: BSA: 1.74m^2. Patient status: Inpatient. CARDIAC ANATOMY LEFT VENTRICLE: The cavity size was normal. Wall thickness was normal. Systolic function was normal. The estimated ejection fraction was in the range of 55% to 60%. Wall motion was normal; there were no regional wall motion abnormalities. AORTIC VALVE: Trileaflet; normal thickness leaflets. Doppler: Transvalvular velocity was within the normal range. There was no stenosis. No regurgitation. Valve area: 2.44cm^2 (Vmax). Indexed valve area: 1.4cm^2/m^2 (Vmax). AORTA: Aortic root: The aortic root was normal in size. MITRAL VALVE: Structurally normal valve. Doppler: Transvalvular velocity was within the normal range. There was no evidence for stenosis. No regurgitation. Peak gradient: 3mm Hg (D). LEFT ATRIUM: The atrium was normal in size. RIGHT VENTRICLE: The cavity size was normal. Wall thickness was normal. PULMONIC VALVE: Doppler: Transvalvular velocity was within the normal range. There was no evidence for stenosis. No regurgitation. TRICUSPID VALVE: Structurally normal valve. Doppler: Transvalvular velocity was within the normal range. Trace to mild regurgitation. PULMONARY ARTERY: The main pulmonary artery was normal-sized. Systolic pressure was within the normal range. RIGHT ATRIUM: The atrium was normal in size. PERICARDIUM: There was no pericardial effusion. SYSTEMIC VEINS: Inferior vena cava: The vessel was normal in size. Patient weight: 159.7lb _Ejection fraction:_ 65-75% _Fractional shortening:_ 32% up to 5Kg 5-11.5Kg 11.6-22.9Kg 23-45Kg 45-57Kg Aortic Root 7-13 <17 13-22 17-27 17-27 LA diam 6-13 <23 24-38 33-47 37-40 RVID 10-17 7-15 7-15 7-18 8-17 LVIDd 12-22 <32 24-38 33-47 37-40 LVPW 2-4 3-6 5-7 6-8 7-8 IVS 2-4 3-6 5-7 6-8 7-8 BASIC MEASUREMENTS ADULT NORMAL Left ventricle LV internal dimension, ED, chordal 44.3 mm 43-52 level, PLAX LV internal dimension, ES, chordal 33.1 mm 23-38 level, PLAX Fractional shortening, chordal level, *25 % >29 PLAX LV posterior wall thickness, ED 10 mm IVS/LVPW ratio, ED 0.96 <1.3 Ventricular septum Septal thickness, ED 9.56 mm Aortic valve Leaflet separation 15 mm 15-26 BASIC MEASUREMENTS ADULT NORMAL Aortic valve Leaflet separation 15 mm 15-26 Aorta Root diameter, ED 30 mm 20-37 Left atrium Anterior-posterior dimension, ES 29 mm 19-40 Anterior-posterior dimension index, ES 1.67 cm/m^2 <2.2 LA/aortic root ratio 0.97 DOPPLER MEASUREMENTS ADULT NORMAL Main pulmonary artery Pressure, S 19 mm Hg =30 Aortic valve Peak velocity, S 143 cm/s Valve area, Vmax 2.44 cm^2 Valve area index, Vmax 1.4 cm^2/m^2 Mitral valve Peak E-wave velocity 91.3 cm/s Peak A-wave velocity 116 cm/s Deceleration time 204 ms 150-230 Peak gradient, D 3 mm Hg Peak E/A ratio 0.8 Tricuspid valve Regurgitant peak velocity 179 cm/s Peak RV-RA gradient, S 13 mm Hg Maximal regurgitant velocity 179 cm/s Systemic veins Estimated CVP 10 mm Hg Right ventricle RV pressure, S 23 mm Hg <30 Pulmonic valve Peak velocity, S 93.7 cm/s LEGEND: Mean values are shown as u=mean value. Asterisk (*) chan values outside specified normal range. Prepared and signed by Charity Echevarria [id number]
[2016-12-24 20:51] LABS: HEMOGLOBIN A1a 1.3 %; HEMOGLOBIN A1b 1.8 %; HEMOGLOBIN Ao 85.6 %; HEMOGLOBIN LA1C 1.7 %; HEMOGLOBIN P3 3.4 %
[2016-12-25] VITALS (8 sets, daily range): BP systolic 121–169; BP diastolic 60–76; PULSE 69–79; RESP 16–19; TEMP 95.7–97.5; O2SAT 70–99
[2016-12-25] MEDS: ALPRAZolam 1 MG TAB PO PRN ×2 (00:01→23:52)
[2016-12-25 01:27] LABS: CREATINE KINASE 122 U/L (26-192)
[2016-12-25 06:04] LABS: AUTOMATED NEUTROPHIL # 3.5 TH/MM3 (1.8-7.7); BASOPHIL % 0.5 % (0.0-2.0); EOSINOPHIL # 0.2 TH/MM3 (0-0.4); EOSINOPHIL % 3.6 % (0.0-4.0); HEMATOCRIT 39.4 % (35.0-46.0); HEMO FLAGS DIFF FINAL; LYMPH % 41.7 % (9.0-44.0); LYMPHOCYTE # 2.9 TH/MM3 (1.0-4.8); MEAN CELL VOLUME 90.3 FL (80.0-100.0); MEAN CORPUSCULAR HEMOGLOBIN 30.6 PG (27.0-34.0); MEAN CORPUSCULAR HGB CONC 33.9 % (32.0-36.0); MONO % 3.8 % (0.0-8.0); NEUT % 50.4 % (16.0-70.0); PLATELET COUNT 104 TH/MM3 (150-450); RED BLOOD COUNT 4.37 MIL/MM3 (4.00-5.30); RED CELL DISTRIBUTION WIDTH 15.4 % (11.6-17.2); WHITE BLOOD COUNT 6.9 TH/MM3 (4.0-11.0)
[2016-12-25] MEDS: INSULIN ASPART SUPPLEMENTAL SCALE SQ SCH ×4 (07:00→21:00)
[2016-12-25] MEDS: DOCUSATE SODIUM 100 MG CAP PO SCH ×2 (07:30→19:30)
[2016-12-25 08:07] LABS: INDIRECT BILIRUBIN 0.3 MG/DL (0.0-0.8); TOTAL BILIRUBIN ADULT 0.4 MG/DL (0.2-1.0)
[2016-12-25 08:08] LABS: BICARBONATE 28.7 MEQ/L (21.0-32.0); HDL CHOLESTEROL 40.1 MG/DL (40.0-60.0); POTASSIUM 4.1 MEQ/L (3.5-5.1)
[2016-12-25] MEDS: SODIUM CHLORIDE 0.9% FLUSH 10 ML FLUSH IV FLUSH SCH ×2 (08:15→23:51)
[2016-12-25] MEDS: ASPIRIN 325 MG TAB PO SCH (08:24)
[2016-12-25] MEDS: ENOXAPARIN SODIUM 40 MG/0.4 ML SYRINGE SQ SCH (08:25)
--- NOTE | 2016-12-25 08:51 | HHI.PR ---
Subjective Remarks This is a pleasant 71 y/o Female with GERD, Hiatal hernia status post Whipple procedure, Depression Anxiety Disorder, Gout, Hypertension, Asthma, Previous Cardiac Cath 2003 with possible CAD, Anemia Degenerative Disc disease and spinal stenosis, Thrombocytopenia, Previous Admissions for Benzodiazepine Withdrawal, history of Back Surgery, Cholecystectomy, Gastric volvulus, partial Small Bowel Resection admitted also in the past status post fall, on this opportunity she was brought in by her Son for Slurred speech and weakness, Patient's son states that she woke up earlier this morning and went to the bathroom and fell. Patient lives with another relative. Patient's son came over to the house and found patient to be confused, with slurred speech and weakness. Patient was brought by private vehicle to the emergency room. Patient's son states that he first saw the patient about an hour and a half prior to arrival.Patient's on reported no history of diabetes or dyslipidemia. Patient is a nonsmoker. No history of previous TIA or CVA. patient seen in the Emergency Room in the presence of her Son Mr. Marino Torres, as per patient she had a mechanical fall, no previous signs like dizziness, Lightheadedness. her son found her Confused and disoriented once he arrived to her home where she lives with her Adopted Daughter, 15 years of age, he was called at 4:30 am. when she refused to go to the hospital with EMS. 12/25: Seen in her bedroom Removed Jackman Catheter, No nausea, vomit or diarrhea. Objective Vital Signs Date Time Temp Pulse Resp B/P Pulse Ox O2 Delivery O2 Flow Rate FiO2 12/25/16 08:13 75 18 121/60 91 Room Air 12/25/16 08:13 97 Nasal Cannula 2 12/25/16 06:15 70 18 133/71 95 12/25/16 02:00 73 16 129/73 96 Room Air 12/24/16 21:30 70 18 139/61 97 12/24/16 20:23 73 18 142/63 97 12/24/16 16:19 76 20 155/67 99 12/24/16 13:25 70 20 116/56 98 Room Air 12/24/16 11:08 70 17 115/56 97 Room Air I/O 12/24/16 12/24/16 12/24/16 12/25/16 12/25/16 12/25/16 07:00 15:00 23:00 07:00 15:00 23:00 Output Total 3000 ml 1400 ml Balance -3000 ml -1400 ml Output Urine Total 3000 ml 1400 ml # Voids 0 Result Diagram: 12/25/1651712/25/16517 Imaging Last Impressions Neck Magnetic Resonance Angiography 12/24/16554 Signed Impressions: Service Date/Time: Saturday, December 24, 2016 10:07 - CONCLUSION: Mild atherosclerotic vascular disease with [id number] proximal internal carotid artery narrowing on the right and mild internal carotid artery narrowing of the left. Poor visualization of the vertebral artery origins. No evidence of hemodynamically significant stenosis. Familia Sawyer MD Head Magnetic Resonance Angiography 12/24/16554 Signed Impressions: Service Date/Time: Saturday, December 24, 2016 10:07 - CONCLUSION: 1. No vessel truncation or aneurysm. 2. Incomplete [place]. David Little MD Brain MRI 12/24/16554 Signed Impressions: Service Date/Time: Saturday, December 24, 2016 10:07 - CONCLUSION: Negative noncontrast MR of the brain. David Little MD Head CT 12/24/16533 Signed Impressions: Service Date/Time: Saturday, December 24, 2016 05:45 - CONCLUSION: Normal examination. Riley Delgado MD Chest X-Ray 12/24/16533 Signed Impressions: Service Date/Time: Saturday, December 24, 2016 05:47 - CONCLUSION: Small lung volumes bilaterally. No infiltrate or mass. Riley Delgado MD Procedures No procedures performed. Other Results Laboratory Tests Test 12/24/16 12/24/16 12/24/16 12/24/16 05:40 06:00 11:13 20:50 Activated Partial 29.1 SEC Thromboplast Time Urine Color LIGHT-YELLOW Urine Turbidity CLEAR Urine pH 5.5 Urine Specific [place] 1.006 Urine Protein NEG mg/dL Urine Glucose (UA) NEG mg/dL Urine Ketones NEG mg/dL Urine Occult Blood NEG Urine Nitrite NEG Urine Bilirubin NEG Urine Urobilinogen LESS THAN 2.0 MG/DL Urine Leukocyte Esterase NEG Urine Squamous Epithelial <1 /hpf Cells Microscopic Urinalysis Comment CULT NOT INDICATED Vitamin B12 Level 272 PG/ML Folate 4.1 NG/ML Hemoglobin A1c 5.7 % Total Creatine Kinase 122 U/L Troponin I LESS THAN 0.02 NG/ML Test 12/25/16 05:18 White Blood Count 6.9 TH/MM3 Red Blood Count 4.37 MIL/MM3 Hemoglobin 13.4 GM/DL Hematocrit 39.4 % Mean Corpuscular Volume 90.3 FL Mean Corpuscular Hemoglobin 30.6 PG Mean Corpuscular Hemoglobin 33.9 % Concent Red Cell Distribution Width 15.4 % Platelet Count 104 TH/MM3 Mean Platelet Volume 7.0 FL Neutrophils (%) (Auto) 50.4 % Lymphocytes (%) (Auto) 41.7 % Monocytes (%) (Auto) 3.8 % Eosinophils (%) (Auto) 3.6 % Basophils (%) (Auto) 0.5 % Neutrophils # (Auto) 3.5 TH/MM3 Lymphocytes # (Auto) 2.9 TH/MM3 Monocytes # (Auto) 0.3 TH/MM3 Eosinophils # (Auto) 0.2 TH/MM3 Basophils # (Auto) 0.0 TH/MM3 CBC Comment DIFF FINAL Differential Comment Prothrombin Time 11.0 SEC Prothromb Time International 1.0 RATIO Ratio Sodium Level 143 MEQ/L Potassium Level 4.1 MEQ/L Chloride Level 108 MEQ/L Carbon Dioxide Level 28.7 MEQ/L Anion Gap 6 MEQ/L Blood Urea Nitrogen 9 MG/DL Creatinine 0.58 MG/DL Estimat Glomerular Filtration 102 ML/MIN Rate Random Glucose 89 MG/DL Calcium Level 8.7 MG/DL Total Bilirubin 0.4 MG/DL Direct Bilirubin 0.1 MG/DL Indirect Bilirubin 0.3 MG/DL Aspartate Amino Transf 38 U/L (AST/SGOT) Alanine Aminotransferase 37 U/L (ALT/SGPT) Alkaline Phosphatase 154 U/L Total Protein 7.3 GM/DL Albumin 3.4 GM/DL Triglycerides Level 132 MG/DL Cholesterol Level 206 MG/DL LDL Cholesterol 140 MG/DL HDL Cholesterol 40.1 MG/DL Cholesterol/HDL Ratio 5.13 RATIO Objective Remarks GENERAL: This is a well-nourished, well-developed patient, in no apparent distress. SKIN: No rashes, ecchymoses or lesions. Cool and dry. HEAD: Atraumatic. Normocephalic. No temporal or scalp tenderness. EYES: Pupils equal round and reactive. Extraocular motions intact. No scleral icterus. No injection or drainage. ENT: Nose without bleeding, purulent drainage or septal hematoma. NECK: Trachea midline. No JVD or lymphadenopathy. Supple, nontender, no meningeal signs. CARDIOVASCULAR: Regular rate and rhythm without murmurs, gallops, or rubs. RESPIRATORY: Clear to auscultation. Breath sounds equal bilaterally. No wheezes , rales, or rhonchi. GASTROINTESTINAL: Abdomen soft, non-tender, nondistended. No hepato-splenomegaly , or palpable masses. No guarding. MUSCULOSKELETAL: Extremities without clubbing, cyanosis, or edema. NEUROLOGICAL: Awake and alert. Cranial nerves II through XII intact. Slurred speech Medications and IVs Current Medications Medications (Trade) Dose Ordered Sig/Danny Route Start Time Stop Time Status Last Admin Sodium Chloride 1,000 ml @ 70 mls/hr [id number] IV 12/24/16 05:45 12/24/16 20:10 (NS 1000 ml Inj) 1,000 ml @ 100 mls/hr Q10H IV 12/24/16 07:28 12/24/16 17:28 (NS Flush) 2 ml UNSCH PRN IV FLUSH 12/24/16 07:30 (NS Flush) 2 ml BID IV FLUSH 12/24/16 09:00 12/24/16 21:00 (Tylenol) 650 mg Q4H PRN PO 12/24/16 07:30 (Zofran Inj) 4 mg Q6H PRN IVP 12/24/16 07:30 (Dulcolax Supp) 10 mg DAILY PRN RECTAL 12/24/16 07:30 (Colace) 100 mg Q12H PO 12/24/16 07:30 12/24/16 20:10 (Lovenox Inj) 40 mg Q24H SQ 12/24/16 07:30 12/25/16 08:25 (Narcan Inj) 0.4 mg UNSCH PRN IV 12/24/16 07:30 (Aspirin) 325 mg DAILY PO 12/25/16 09:00 (D50w (Vial) Inj) 25 ml UNSCH PRN IV PUSH 12/24/16 07:30 (Glucagon Inj) 1 mg UNSCH PRN IM/SQ 12/24/16 07:30 (Xanax) 1 mg Q8H PRN PO 12/24/16 08:00 12/25/16 00:01 A/P Assessment and Plan 1. Acute Metabolic Encephalopathy improving probable related to TIA. Improved. 2. Status post Fall mechanical fall 3. Questionable TIA, asked for MRI, MRA, negative CT brain, continue Stroke management with Aspirin she has listed Aspirin allergy but already received this medicine in am in Emergency room and no side effects so far Cardiac monitoring, Cardiac Enzymes, Echocardiogram, Neurology consult, Vitamin B12, Folate levels, Seizure precautions, fall precautions. seen by Neurology specialist Doctor Fulop MRI, MRA Carotid Doppler negatives elevated LDL cholesterol needs to be on Statin medicine, Awaiting final recommendations by PT. OT and Neurology 4. Anxiety disorder/Depression stable 5. Chronic Pain syndrome/spinal stenosis not taking narcotics at home 6. Hypertension controlled without medicines. 7. Chronic Abdominal pain followed by Doctor Virgen Melissa GI specialist as outpatient. DVT Prophylaxis with Lovenox Code Status Full Code Discussed Condition With Patient in the room. Discharge Planning When cleared by Neurology specialist Morales Marcos MD Dec 25, 2016 08:51
[2016-12-25] MEDS: SODIUM CHLOR 0.9% 1000 ML INJ 1,000 ML IV SCH ×4 (10:31→23:54)
[2016-12-26 00:43] VITALS: BP 138/70; PULSE 80; RESP 18; TEMP 96.8; O2SAT 98
[2016-12-26 04:57] VITALS: BP 159/67; PULSE 82; RESP 22; TEMP 97.1; O2SAT 94
[2016-12-26] MEDS: INSULIN ASPART SUPPLEMENTAL SCALE SQ SCH ×3 (06:25→15:44)
[2016-12-26] MEDS: DOCUSATE SODIUM 100 MG CAP PO SCH (06:34)
[2016-12-26] MEDS: ENOXAPARIN SODIUM 40 MG/0.4 ML SYRINGE SQ SCH (06:34)
[2016-12-26 08:16] VITALS: BP 101/64; PULSE 69; RESP 18; TEMP 97; O2SAT 97
--- NOTE | 2016-12-26 08:21 | HHI.PR ---
Subjective Remarks This is a pleasant 71 y/o Female with GERD, Hiatal hernia status post Whipple procedure, Depression Anxiety Disorder, Gout, Hypertension, Asthma, Previous Cardiac Cath 2002 with possible CAD, Anemia Degenerative Disc disease and spinal stenosis, Thrombocytopenia, Previous Admissions for Benzodiazepine Withdrawal, history of Back Surgery, Cholecystectomy, Gastric volvulus, partial Small Bowel Resection admitted also in the past status post fall, on this opportunity she was brought in by her Son for Slurred speech and weakness, Patient's son states that she woke up earlier this morning and went to the bathroom and fell. Patient lives with another relative. Patient's son came over to the house and found patient to be confused, with slurred speech and weakness. Patient was brought by private vehicle to the emergency room. Patient's son states that he first saw the patient about an hour and a half prior to arrival.Patient's on reported no history of diabetes or dyslipidemia. Patient is a nonsmoker. No history of previous TIA or CVA. patient seen in the Emergency Room in the presence of her Son Mr. Marino Torres, as per patient she had a mechanical fall, no previous signs like dizziness, Lightheadedness. her son found her Confused and disoriented once he arrived to her home where she lives with her Adopted Daughter, 15 years of age, he was called at 4:30 am. when she refused to go to the hospital with EMS. 12/25: Seen in her bedroom Removed Jackman Catheter, No nausea, vomit or diarrhea. 12/26: Patient stable discussed with nurse Miss Cochran and with patient, no nausea , vomit or diarrhea, Physical Therapy recommended to Discharge on [facility] for Physical Therapy and Skilled nurse, at this time stable Alert and oriented x 3. Objective Vital Signs Date Time Temp Pulse Resp B/P Pulse Ox O2 Delivery O2 Flow Rate FiO2 12/26/16 04:57 97.1 82 22 159/67 94 12/26/16 00:43 96.8 80 18 138/70 98 12/25/16 20:00 97.5 79 18 169/76 96 12/25/16 18:12 96 Nasal Cannula 2.00 12/25/16 16:30 97.2 75 19 130/65 96 12/25/16 13:14 95.7 69 19 150/69 98 12/25/16 12:13 73 18 135/72 99 Nasal Cannula 2 I/O 12/25/16 12/25/16 12/25/16 12/26/16 12/26/16 12/26/16 07:00 15:00 23:00 07:00 15:00 23:00 Intake Total 480 ml 480 ml Output Total 2175 ml Balance -1695 ml 480 ml Intake Oral 480 ml 480 ml Output Urine Total 2175 ml # Voids 2 1 # Bowel Movements 0 0 1 Result Diagram: 12/25/1651712/25/16517 Imaging Last Impressions Neck Magnetic Resonance Angiography 12/24/16554 Signed Impressions: Service Date/Time: Saturday, December 24, 2016 10:07 - CONCLUSION: Mild atherosclerotic vascular disease with [id number] proximal internal carotid artery narrowing on the right and mild internal carotid artery narrowing of the left. Poor visualization of the vertebral artery origins. No evidence of hemodynamically significant stenosis. Familia Sawyer MD Head Magnetic Resonance Angiography 12/24/16554 Signed Impressions: Service Date/Time: Saturday, December 24, 2016 10:07 - CONCLUSION: 1. No vessel truncation or aneurysm. 2. Incomplete [place]. David Little MD Brain MRI 12/24/16554 Signed Impressions: Service Date/Time: Saturday, December 24, 2016 10:07 - CONCLUSION: Negative noncontrast MR of the brain. David Little MD Head CT 12/24/16533 Signed Impressions: Service Date/Time: Saturday, December 24, 2016 05:45 - CONCLUSION: Normal examination. Riley Delgado MD Chest X-Ray 12/24/16533 Signed Impressions: Service Date/Time: Saturday, December 24, 2016 05:47 - CONCLUSION: Small lung volumes bilaterally. No infiltrate or mass. Riley Delgado MD Procedures No procedures performed. Other Results Laboratory Tests Test 12/24/16 12/24/16 12/24/16 12/24/16 05:40 06:00 11:13 20:50 Activated Partial 29.1 SEC Thromboplast Time Urine Color LIGHT-YELLOW Urine Turbidity CLEAR Urine pH 5.5 Urine Specific [place] 1.006 Urine Protein NEG mg/dL Urine Glucose (UA) NEG mg/dL Urine Ketones NEG mg/dL Urine Occult Blood NEG Urine Nitrite NEG Urine Bilirubin NEG Urine Urobilinogen LESS THAN 2.0 MG/DL Urine Leukocyte Esterase NEG Urine Squamous Epithelial <1 /hpf Cells Microscopic Urinalysis Comment CULT NOT INDICATED Vitamin B12 Level 272 PG/ML Folate 4.1 NG/ML Hemoglobin A1c 5.7 % Total Creatine Kinase 122 U/L Troponin I LESS THAN 0.02 NG/ML Test 12/25/16 05:18 White Blood Count 6.9 TH/MM3 Red Blood Count 4.37 MIL/MM3 Hemoglobin 13.4 GM/DL Hematocrit 39.4 % Mean Corpuscular Volume 90.3 FL Mean Corpuscular Hemoglobin 30.6 PG Mean Corpuscular Hemoglobin 33.9 % Concent Red Cell Distribution Width 15.4 % Platelet Count 104 TH/MM3 Mean Platelet Volume 7.0 FL Neutrophils (%) (Auto) 50.4 % Lymphocytes (%) (Auto) 41.7 % Monocytes (%) (Auto) 3.8 % Eosinophils (%) (Auto) 3.6 % Basophils (%) (Auto) 0.5 % Neutrophils # (Auto) 3.5 TH/MM3 Lymphocytes # (Auto) 2.9 TH/MM3 Monocytes # (Auto) 0.3 TH/MM3 Eosinophils # (Auto) 0.2 TH/MM3 Basophils # (Auto) 0.0 TH/MM3 CBC Comment DIFF FINAL Differential Comment Prothrombin Time 11.0 SEC Prothromb Time International 1.0 RATIO Ratio Sodium Level 143 MEQ/L Potassium Level 4.1 MEQ/L Chloride Level 108 MEQ/L Carbon Dioxide Level 28.7 MEQ/L Anion Gap 6 MEQ/L Blood Urea Nitrogen 9 MG/DL Creatinine 0.58 MG/DL Estimat Glomerular Filtration 102 ML/MIN Rate Random Glucose 89 MG/DL Calcium Level 8.7 MG/DL Total Bilirubin 0.4 MG/DL Direct Bilirubin 0.1 MG/DL Indirect Bilirubin 0.3 MG/DL Aspartate Amino Transf 38 U/L (AST/SGOT) Alanine Aminotransferase 37 U/L (ALT/SGPT) Alkaline Phosphatase 154 U/L Total Protein 7.3 GM/DL Albumin 3.4 GM/DL Triglycerides Level 132 MG/DL Cholesterol Level 206 MG/DL LDL Cholesterol 140 MG/DL HDL Cholesterol 40.1 MG/DL Cholesterol/HDL Ratio 5.13 RATIO Objective Remarks GENERAL: This is a well-nourished, well-developed patient, in no apparent distress. SKIN: No rashes, ecchymoses or lesions. Cool and dry. HEAD: Atraumatic. Normocephalic. No temporal or scalp tenderness. EYES: Pupils equal round and reactive. Extraocular motions intact. No scleral icterus. No injection or drainage. ENT: Nose without bleeding, purulent drainage or septal hematoma. NECK: Trachea midline. No JVD or lymphadenopathy. Supple, nontender, no meningeal signs. CARDIOVASCULAR: Regular rate and rhythm without murmurs, gallops, or rubs. RESPIRATORY: Clear to auscultation. Breath sounds equal bilaterally. No wheezes , rales, or rhonchi. GASTROINTESTINAL: Abdomen soft, non-tender, nondistended. No hepato-splenomegaly , or palpable masses. No guarding. MUSCULOSKELETAL: Extremities without clubbing, cyanosis, or edema. NEUROLOGICAL: Awake and alert. Cranial nerves II through XII intact. no focal deficits. Medications and IVs Current Medications Medications (Trade) Dose Ordered Sig/Danny Route Start Time Stop Time Status Last Admin (NS 1000 ml Inj) 1,000 ml @ 100 mls/hr Q10H IV 12/24/16 07:28 12/25/16 23:54 (NS Flush) 2 ml UNSCH PRN IV FLUSH 12/24/16 07:30 (NS Flush) 2 ml BID IV FLUSH 12/24/16 09:00 12/25/16 23:51 (Tylenol) 650 mg Q4H PRN PO 12/24/16 07:30 (Zofran Inj) 4 mg Q6H PRN IVP 12/24/16 07:30 12/26/16 00:00 (Dulcolax Supp) 10 mg DAILY PRN RECTAL 12/24/16 07:30 (Colace) 100 mg Q12H PO 12/24/16 07:30 12/24/16 20:10 (Lovenox Inj) 40 mg Q24H SQ 12/24/16 07:30 12/26/16 06:34 (Narcan Inj) 0.4 mg UNSCH PRN IV 12/24/16 07:30 (Aspirin) 325 mg DAILY PO 12/25/16 09:00 (D50w (Vial) Inj) 25 ml UNSCH PRN IV PUSH 12/24/16 07:30 (Glucagon Inj) 1 mg UNSCH PRN IM/SQ 12/24/16 07:30 (Xanax) 1 mg Q8H PRN PO 12/24/16 08:00 12/25/16 23:52 A/P Assessment and Plan 1. Acute Metabolic Encephalopathy improving probable related to TIA. Improved. 2. Status post Fall mechanical fall 3. Questionable TIA, asked for MRI, MRA, negative CT brain, continue Stroke management with Aspirin she has listed Aspirin allergy but already received this medicine in am in Emergency room and no side effects so far Cardiac monitoring, Cardiac Enzymes, Echocardiogram, Neurology consult, Vitamin B12, Folate levels, Seizure precautions, fall precautions. seen by Neurology specialist Doctor Fulop MRI, MRA Carotid Doppler negatives elevated LDL cholesterol needs to be on Statin medicine, Awaiting final recommendations by PT. OT and Neurology Echocardiogram EF 55-60%. 4. Anxiety disorder/Depression stable 5. Chronic Pain syndrome/spinal stenosis not taking narcotics at home 6. Hypertension controlled without medicines. 7. Chronic Abdominal pain followed by Doctor Virgen Melissa GI specialist as outpatient. 8. Hyperlipidemia started on Pravastatin. keep LDL Cholesterol below 70 MG/DL DVT Prophylaxis with Lovenox Code Status Full Code Discussed Condition With Patient in the room. and Nurse Miss Cochran Patient refused Aspirin. face to face for HHC with PT and Skilled nurse Discharge Planning Awaiting clearance by Neurology specialist for discharge Moraels Marcos MD Dec 26, 2016 08:21
--- NOTE | 2016-12-26 08:57 | HHI.FF ---
Face to Face Verification Diagnosis: (1) Fall (2) Acute CVA (cerebrovascular accident) Physical Therapy Order: Evaluate and Treat, Strength and gait training Home Health Nursing Order: Medical education Signs/symptoms of disease process Medication education-adverse effect Nursing assessment with vital signs I have seen patient Josie Torres on 12/26/16. My clinical findings support the need for the requested home health care services because: Ltd mobility - disease progression Deconditioned w/ increased weakness I certify that my clinical findings support that this patient is homebound because: Unsteady gait/balance Unsafe to leave home unassisted Morales Marcos MD Dec 26, 2016 08:57
[2016-12-26] MEDS: SODIUM CHLORIDE 0.9% FLUSH 10 ML FLUSH IV FLUSH SCH (09:00)
[2016-12-26] MEDS: ASPIRIN 325 MG TAB PO SCH (09:18)
[2016-12-26 12:03] VITALS: O2SAT 92
[2016-12-26 12:27] VITALS: BP 122/74; PULSE 76; RESP 18; TEMP 96.8; O2SAT 98
[2016-12-26] MEDS ORDERED: ASPI325T PO (15:39)
[2016-12-26] MEDS ORDERED: PRAV20TA PO (15:39)
--- NOTE | 2016-12-26 15:44 | HHI.DS ---
Discharge Summary Admission Date Dec 25, 2016 at 14:29 Discharge Date: Dec 26, 2016 Admitting Diagnosis acute CVA (1) TIA (transient ischemic attack) ICD Code: G45.9 Diagnosis: Principal (2) Hyperlipidemia ICD Code: E78.5 Diagnosis: Principal Procedures No procedures performed. Brief History - From Admission This is a pleasant 71 y/o Female with GERD, Hiatal hernia status post Whipple procedure, Depression Anxiety Disorder, Gout, Hypertension, Asthma, Previous Cardiac Cath 2002 with possible CAD, Anemia Degenerative Disc disease and spinal stenosis, Thrombocytopenia, Previous Admissions for Benzodiazepine Withdrawal, history of Back Surgery, Cholecystectomy, Gastric volvulus, partial Small Bowel Resection admitted also in the past status post fall, on this opportunity she was brought in by her Son for Slurred speech and weakness, Patient's son states that she woke up earlier this morning and went to the bathroom and fell. Patient lives with another relative. Patient's son came over to the house and found patient to be confused, with slurred speech and weakness. Patient was brought by private vehicle to the emergency room. Patient's son states that he first saw the patient about an hour and a half prior to arrival.Patient's on reported no history of diabetes or dyslipidemia. Patient is a nonsmoker. No history of previous TIA or CVA. patient seen in the Emergency Room in the presence of her Son Mr. Marino Torres, as per patient she had a mechanical fall, no previous signs like dizziness, Lightheadedness. her son found her Confused and disoriented once he arrived to her home where she lives with her Adopted Daughter, 15 years of age, he was called at 4:30 am. when she refused to go to the hospital with EMS. CBC/BMP: 12/25/1618 12/25/16517 Significant Findings Laboratory Tests Test 12/24/16 12/24/16 12/24/16 12/25/16 05:40 11:13 20:50 05:18 Platelet Count 103 TH/MM3 104 TH/MM3 (150-450) (150-450) Estimat Glomerular Filtration 83 ML/MIN (>89) Rate Random Glucose 119 MG/DL (74-106) Alkaline Phosphatase 176 U/L 154 U/L (45-117) (45-117) Albumin 3.3 GM/DL (3.4-5.0) Troponin I LESS THAN 0.02 LESS THAN 0.02 NG/ML NG/ML (0.02-0.05) (0.02-0.05) Chloride Level 108 MEQ/L (98-107) Aspartate Amino Transf 38 U/L (15-37) (AST/SGOT) Cholesterol Level 206 MG/DL (120-200) LDL Cholesterol 140 MG/DL (0-99) Imaging Last Impressions Neck Magnetic Resonance Angiography 12/24/16554 Signed Impressions: Service Date/Time: Saturday, December 24, 2016 10:07 - CONCLUSION: Mild atherosclerotic vascular disease with [id number] proximal internal carotid artery narrowing on the right and mild internal carotid artery narrowing of the left. Poor visualization of the vertebral artery origins. No evidence of hemodynamically significant stenosis. Familia Sawyer MD Head Magnetic Resonance Angiography 12/24/16554 Signed Impressions: Service Date/Time: Saturday, December 24, 2016 10:07 - CONCLUSION: 1. No vessel truncation or aneurysm. 2. Incomplete [place]. David Little MD Brain MRI 12/24/16554 Signed Impressions: Service Date/Time: Saturday, December 24, 2016 10:07 - CONCLUSION: Negative noncontrast MR of the brain. David Little MD Head CT 12/24/16533 Signed Impressions: Service Date/Time: Saturday, December 24, 2016 05:45 - CONCLUSION: Normal examination. Riley Delgado MD Chest X-Ray 12/24/16533 Signed Impressions: Service Date/Time: Saturday, December 24, 2016 05:47 - CONCLUSION: Small lung volumes bilaterally. No infiltrate or mass. Riley Delgado MD PE at Discharge GENERAL: This is a well-nourished, well-developed patient, in no apparent distress. SKIN: No rashes, ecchymoses or lesions. Cool and dry. HEAD: Atraumatic. Normocephalic. No temporal or scalp tenderness. EYES: Pupils equal round and reactive. Extraocular motions intact. No scleral icterus. No injection or drainage. ENT: Nose without bleeding, purulent drainage or septal hematoma. NECK: Trachea midline. No JVD or lymphadenopathy. Supple, nontender, no meningeal signs. CARDIOVASCULAR: Regular rate and rhythm without murmurs, gallops, or rubs. RESPIRATORY: Clear to auscultation. Breath sounds equal bilaterally. No wheezes , rales, or rhonchi. GASTROINTESTINAL: Abdomen soft, non-tender, nondistended. No hepato-splenomegaly , or palpable masses. No guarding. MUSCULOSKELETAL: Extremities without clubbing, cyanosis, or edema. NEUROLOGICAL: Awake and alert. Cranial nerves II through XII intact. no focal deficits. Hospital Course This is a pleasant 71 y/o Female with GERD, Hiatal hernia status post Whipple procedure, Depression Anxiety Disorder, Gout, Hypertension, Asthma, Previous Cardiac Cath 2003 with possible CAD, Anemia Degenerative Disc disease and spinal stenosis, Thrombocytopenia, Previous Admissions for Benzodiazepine Withdrawal, history of Back Surgery, Cholecystectomy, Gastric volvulus, partial Small Bowel Resection admitted also in the past status post fall, on this opportunity she was brought in by her Son for Slurred speech and weakness, Patient's son states that she woke up earlier this morning and went to the bathroom and fell. Patient lives with another relative. Patient's son came over to the house and found patient to be confused, with slurred speech and weakness. Patient was brought by private vehicle to the emergency room. Patient's son states that he first saw the patient about an hour and a half prior to arrival.Patient's on reported no history of diabetes or dyslipidemia. Patient is a nonsmoker. No history of previous TIA or CVA. patient seen in the Emergency Room in the presence of her Son Mr. Marino Torres, as per patient she had a mechanical fall, no previous signs like dizziness, Lightheadedness. her son found her Confused and disoriented once he arrived to her home where she lives with her Adopted Daughter, 15 years of age, he was called at 4:30 am. when she refused to go to the hospital with EMS. 12/25: Seen in her bedroom Removed Jackman Catheter, No nausea, vomit or diarrhea. 12/26: Patient stable discussed with nurse Miss Cochran and with patient, no nausea , vomit or diarrhea, Physical Therapy recommended to Discharge on HHC for Physical Therapy and Skilled nurse, at this time stable Alert and oriented x 3. Assessment and Plan 1. Acute Metabolic Encephalopathy improving probable related to TIA. Improved. 2. Status post Fall mechanical fall 3. Questionable TIA, asked for MRI, MRA, negative CT brain, continue Stroke management with Aspirin she has listed Aspirin allergy but already received this medicine in am in Emergency room and no side effects so far Cardiac monitoring, Cardiac Enzymes, Echocardiogram, Neurology consult, Vitamin B12, Folate levels, Seizure precautions, fall precautions. seen by Neurology specialist Doctor Flower MRI, MRA Carotid Doppler negatives elevated LDL cholesterol needs to be on Statin medicine, Awaiting final recommendations by PT. OT and Neurology Echocardiogram EF 55-60%. 4. Anxiety disorder/Depression stable 5. Chronic Pain syndrome/spinal stenosis not taking narcotics at home 6. Hypertension controlled without medicines. 7. Chronic Abdominal pain followed by Doctor Virgen Melissa GI specialist as outpatient. 8. Hyperlipidemia started on Pravastatin. keep LDL Cholesterol below 70 MG/DL DVT Prophylaxis with Lovenox Code Status Full Code Discussed Condition With Patient in the room. and Nurse Miss Cochran Patient refused Aspirin. face to face for [facility] with PT and Skilled nurse Discharge Planning Cleared by Neurology specialist, to discharge Home with C Pt Condition on Discharge: Good Discharge Disposition: Disch w/ Home Health Serv Discharge Time: <= 30 minutes Discharge Instructions DIET: Follow Instructions for: Heart Healthy Diet Speech Therapy-Diet Recommends: Soft Activities you can perform: Regular-No Restrictions Morales Marcos MD Dec 26, 2016 15:44
[2016-12-26 15:56] VITALS: BP 118/60; PULSE 69; RESP 18; TEMP 96.8; O2SAT 94
[2016-12-26] MEDS ORDERED: PRAVASTATIN SOD 20 MG TAB PO SCH (21:00)
== END 2016-12-26 16:39 | disposition home health service (06) | DRG 69 ==
LOC: NEPE 05:09 → INTOOBSV 07:17 → NEDA 07:17 → NEDH 19:41 → N05A 12-25 12:54 → OBSVTOIN 12-25 14:29
PROVIDERS: ADMIT Internal Medicine; ATTEND Internal Medicine
PROC: 0T9B70Z Drainage of Bladder with Drainage Device, Via Natural or Artificial Opening (ICD-10-PCS; principal; 2016-12-25)
DX: G45.9 Transient cerebral ischemic attack, unspecified (principal); G93.41 Metabolic encephalopathy; I10 Essential (primary) hypertension; K21.9 Gastro-esophageal reflux disease without esophagitis; R53.1 Weakness; R47.81 Slurred speech; Z88.6 Allergy status to analgesic agent; Z88.5 Allergy status to narcotic agent; Z88.0 Allergy status to penicillin; Z88.2 Allergy status to sulfonamides; F40.240 Claustrophobia; K44.9 Diaphragmatic hernia without obstruction or gangrene; M48.00 Spinal stenosis, site unspecified; F32.9 Major depressive disorder, single episode, unspecified; M19.90 Unspecified osteoarthritis, unspecified site; J45.909 Unspecified asthma, uncomplicated; I25.10 Atherosclerotic heart disease of native coronary artery without angina pectoris; M10.9 Gout, unspecified; F41.8 Other specified anxiety disorders; G89.4 Chronic pain syndrome; H53.8 Other visual disturbances; W19.XXXA Unspecified fall, initial encounter; R10.9 Unspecified abdominal pain; E78.5 Hyperlipidemia, unspecified
CPT/HCPCS: 51702; 70450; 70544; 70548; 70551; 71010; 80048; 80053; 80061; 80076; 81001; 82550; 82607; 82746; 82948; 83036; 84484; 85025; 85610; 85730; 93005; 93306; 96360; A9579; J1650; J2060; J2405; J7030

== ENCOUNTER 2017-07-21 17:16 | Emergency (ER) | payer MEDICARE, OTHER ==
[~2017-07-21] VITALS: Ht 157.5 cm; Wt 73.0 kg
[~2017-07-21 17:16] MED LIST changes: +ASPI-183 PO; -DICL75TA PO; -PERM5CRE TOPICAL; +PRAV20TA PO; -PROM25TA5 PO; -TRAM50TA PO; -UNK BP MED PO
[2017-07-21 17:17] VITALS: BP 148/69; PULSE 79; RESP 20; TEMP 98.4; O2SAT 96
--- NOTE | 2017-07-21 17:50 | RADRPT ---
EXAM DATE/TIME: 07/21/2017 17:39 [facility] COMPARISON: CHEST SINGLE AP, December 24, 2016, 5:47. INDICATIONS : Chest pain MEDICAL HISTORY : Hypertension. Seizures. SURGICAL HISTORY : Inguinal hernia repair ENCOUNTER: Initial ACUITY: 2 weeks PAIN SCORE: 0/10 LOCATION: chest FINDINGS: The cardiac and mediastinal contours are within normal limits. The pulmonary parenchyma is clear. The exam demonstrates ankylosis of the thoracic vertebral bodies. No destructive lesion is seen. Exam ap pears similar to previous of 12/24/16. CONCLUSION: 1. No acute cardiopulmonary findings identified. 2. Flowing osteophyte with ankylosis of the thoracic vertebral bodies suggesting possible ankylosing spondylitis Remi Valles MD on July 21, 2017 at 17:47 Board Certified Radiologist. This report was verified electronically.
[2017-07-21 18:14] VITALS: BP 137/85; PULSE 76; RESP 19; O2SAT 95
[2017-07-21] MEDS ORDERED: SODIUM CHLOR 0.9% 1000 ML INJ 1,000 ML IV SCH (18:55)
[2017-07-21] MEDS ORDERED: SODIUM CHLORIDE 0.9% FLUSH 10 ML FLUSH IV FLUSH PRN (19:00)
[2017-07-21] MEDS ORDERED: ONDANSETRON HCL 4 MG/2 ML VIAL IVP ONE (19:00)
[2017-07-21] MEDS ORDERED: MORPHINE SULFATE 4 MG/ML INJ IV PUSH ONE (19:00)
--- NOTE | 2017-07-21 19:04 | PD ---
HPI Chief Complaint: Abdominal Pain Time Seen by Provider: 18:41 Travel History International Travel<30 days: No Contact w/Intl Traveler<30days: No Traveled to known affect area: No History of Present Illness HPI 72-year-old female past medical history significant for GERD, hiatal hernia status post Whipple procedure, depression, anxiety disorder, gout, hypertension , asthma, possible CAD, anemia, degenerative disc disease, spinal stenosis, thrombocytopenia, cholecystectomy, appendectomy, partial small bowel resection, gastric bolus, hernia repair 3 presents to the emergency department for evaluation of diffuse abdominal pain. Patient states that she is having abdominal pain for several months. However, it worsened yesterday. Patient reports chronic diarrhea. She states she has been nauseous, no vomiting. No fevers, but reports chills. No chest pain or shortness of breath. Patient states he has pain in her entire abdomen. She states the pain is sometimes sharp, sometimes aching. No radiation of the pain. Severity is moderate. PFSH Past Medical History Arthritis: Yes Asthma: No Blood Disorders: No Anxiety: Yes Depression: Yes Heart Rhythm Problems: No Cancer: No Cardiac Catheterization: No Cardiovascular Problems: Yes High Cholesterol: No Chemotherapy: No Chest Pain: No Congestive Heart Failure: No COPD: No Cerebrovascular Accident: No Diabetes: No Diminished Hearing: No Endocrine: No Gastrointestinal Disorders: Yes (HX OF GERD, HIATAL HERNIA REPAIR ) GERD: Yes Genitourinary: No Hepatitis: No Hiatal Hernia: Yes Hypertension: Yes Immune Disorder: No Implanted Vascular Access Dvce: No Kidney Stones: No Musculoskeletal: Yes (BACK/NECK PROBLEMS, CLAUDIO KNEE PROBLEMS,SPINAL STENOSIS, HNP) Neurologic: Yes Psychiatric: Yes (CLAUSTROPHOBIC) Reproductive: No Respiratory: No Seizures: Yes (FROM DRUG W/D) Thyroid Disease: No Tetanus Vaccination: Unknown Influenza Vaccination: No PNEUMOCCOCAL Vaccine (Year): 2 Menopausal: Yes Tubal Ligation: Yes Past Surgical History Abdominal Surgery: Yes (PT STATES THE PT ONLY HAD 3 HERNIA OPERATIONS) AICD: No Appendectomy: Yes Arteriovenous Shunt: No Cardiac Surgery: No Cholecystectomy: Yes Coronary Artery Bypass Graft: No Ear Surgery: No Endocrine Surgery: No Eye Surgery: No Genitourinary Surgery: No Gynecologic Surgery: No Joint Replacement: No Neurologic Surgery: No Oral Surgery: No Pacemaker: No Thoracic Surgery: No Other Surgery: Yes Family History Family Myocardial Infarction: Yes (SISTER OPEN HEART) Social History Alcohol Use: No Tobacco Use: No Substance Use: No Allergies-Medications (Allergen,Severity, Reaction): Coded Allergies: Sulfa (Sulfonamide Antibiotics) (Unverified Allergy, Severe, Itching, ) oxycodone (Unverified Allergy, Severe, 07/21/17) aspirin (Unverified Allergy, Intermediate, 07/21/17) Reported Meds & Prescriptions Reported Meds & Active Scripts Active Pravachol (Pravastatin) 20 Mg Tab 20 Mg PO HS Aspirin 325 Mg Tab 325 Mg PO DAILY Reported Xanax (Alprazolam) 1 Mg Tab 1 Mg PO Q8H PRN Review of Systems Except as stated in HPI: all other systems reviewed are Neg Physical Exam Narrative GENERAL: Well-nourished, well-developed female patient, afebrile. SKIN: Focused skin assessment warm/dry. HEAD: Normocephalic. Atraumatic. EYES: No scleral icterus. No injection or drainage. NECK: Supple, trachea midline. No JVD or lymphadenopathy. CARDIOVASCULAR: Regular rate and rhythm without murmurs, gallops, or rubs. RESPIRATORY: Breath sounds equal bilaterally. No accessory muscle use. Lungs sounds are clear to auscultation. GASTROINTESTINAL: Abdomen soft and nondistended. Patient has several scars. There is a mid abdominal hernia noted, but this is soft to palpation, does not appear to be incarcerated. She has diffuse tenderness to palpation throughout the abdomen. MUSCULOSKELETAL: No cyanosis, or edema. BACK: Nontender without obvious deformity. No CVA tenderness. Data Data Last Documented VS Vital Signs Date Time Temp Pulse Resp B/P (MAP) Pulse Ox O2 Delivery O2 Flow Rate FiO2 07/21/17 20:15 89 18 137/78 (97) 98 Nasal Cannula 2.00 07/21/17:17 98.4 Orders Orders Complete Blood Count With Diff (07/21/17:25) Comprehensive Metabolic Panel (07/21/17) Lipase (07/21/17:) Prothrombin Time / Inr (Pt) (07/21/17:) Act Partial Throm Time (Ptt) (07/21/17:) Urinalysis - C+S If Indicated (07/21/17) Electrocardiogram (11/13/17 17:25) Ckmb (Isoenzyme) Profile (07/21/17 17:25) Troponin I (07/21/17 17:25) Chest, Pa & Lat (07/21/17 ) Ct Abd/Pel W Iv Contrast(Rout) (07/21/17 18:55) Iv Access Insert/Monitor (07/21/17 18:55) Ecg Monitoring (07/21/17 18:55) Oximetry (07/21/17 18:55) Morphine Inj (Morphine Inj) (07/21/17 19:00) Ondansetron Inj (Zofran Inj) (07/21/17 19:00) Sodium Chlor 0.9% 1000 Ml Inj (Ns 1000 M (07/21/17 18:55) Sodium Chloride 0.9% Flush (Ns Flush) (07/21/17 19:00) Iohexol 350 Inj (Omnipaque 350 Inj) (07/21/17 19:48) Labs Laboratory Tests Test 07/21/17 18:18 07/21/17 18:31 White Blood Count 11.0 TH/MM3 Red Blood Count 4.83 MIL/MM3 Hemoglobin 15.3 GM/DL Hematocrit 43.6 % Mean Corpuscular Volume 90.2 FL Mean Corpuscular Hemoglobin 31.6 PG Mean Corpuscular Hemoglobin Concent 35.0 % Red Cell Distribution Width 14.3 % Platelet Count 109 TH/MM3 Mean Platelet Volume 7.4 FL Neutrophils (%) (Auto) 36.9 % Lymphocytes (%) (Auto) 26.4 % Monocytes (%) (Auto) 2.8 % Eosinophils (%) (Auto) 33.3 % Basophils (%) (Auto) 0.6 % Neutrophils # (Auto) 4.0 TH/MM3 Lymphocytes # (Auto) 2.9 TH/MM3 Monocytes # (Auto) 0.3 TH/MM3 Eosinophils # (Auto) 3.7 TH/MM3 Basophils # (Auto) 0.1 TH/MM3 CBC Comment DIFF FINAL Differential Comment Prothrombin Time 11.8 SEC Prothromb Time International Ratio 1.1 RATIO Activated Partial Thromboplast Time 42.2 SEC Blood Urea Nitrogen 5 MG/DL Creatinine 0.63 MG/DL Random Glucose 90 MG/DL Total Protein 8.4 GM/DL Albumin 3.6 GM/DL Calcium Level 9.1 MG/DL Alkaline Phosphatase 249 U/L Aspartate Amino Transf (AST/SGOT) 35 U/L Alanine Aminotransferase (ALT/SGPT) 26 U/L Total Bilirubin 0.5 MG/DL Sodium Level 139 MEQ/L Potassium Level 3.8 MEQ/L Chloride Level 101 MEQ/L Carbon Dioxide Level 30.4 MEQ/L Anion Gap 8 MEQ/L Estimat Glomerular Filtration Rate 92 ML/MIN Total Creatine Kinase 29 U/L Troponin I LESS THAN 0.02 NG/ML Lipase 62 U/L Urine Color LIGHT-YELLOW Urine Turbidity CLEAR Urine pH 7.0 Urine Specific [place] 1.003 Urine Protein NEG mg/dL Urine Glucose (UA) NEG mg/dL Urine Ketones NEG mg/dL Urine Occult Blood NEG Urine Nitrite NEG Urine Bilirubin NEG Urine Urobilinogen LESS THAN 2.0 MG/DL Urine Leukocyte Esterase NEG Urine RBC LESS THAN 1 /hpf Urine WBC 2 /hpf Urine Squamous Epithelial Cells 1 /hpf Urine Bacteria OCC /hpf Microscopic Urinalysis Comment CULT NOT INDICATED MDM Medical Decision Making Medical Screen Exam Complete: Yes Emergency Medical Condition: Yes Medical Record Reviewed: Yes Interpretation(s) Last Impressions Chest X-Ray 07/21/17 0000 Signed Impressions: Service Date/Time: Friday, July 21, 2017 17:39 - CONCLUSION: 1. No acute cardiopulmonary findings identified. 2. Flowing osteophyte with ankylosis of the thoracic vertebral bodies suggesting possible ankylosing spondylitis Remi Valles MD CT abdomen/pelvis - CONCLUSION: 1. No definite acute abnormality is seen. 2. Mild hiatal hernia. 3. Status post bowel surgery with bowel anastomosis sutures seen at the inferior aspect of the stomach with an anastomosis of the small bowel. There is also a separate area of small bowel anastomosis sutures. 4. Hepatic steatosis. 5. Calcified granulomas in the spleen. 6. Mild dilatation of the common bile duct likely reflecting a reservoir phenomenon following cholecystectomy. This appearance is unchanged. 7. Hernia mesh at the under surface of the anterior abdominal wall. Differential Diagnosis Hernia versus chronic abdominal pain versus UTI versus pyelonephritis versus bowel instruction versus pancreatitis versus peptic colitis Narrative Course 72-year-old female presents to the emergency department for evaluation of worsening abdominal pain. EKG, CBC, CMP, lipase, CK, troponin, PTT, PT/INR, UA , chest x-ray are ordered in triage. Patient is given normal saline 1 L IV bolus, morphine 4 mg IV, Zofran [address] abdomen/pelvis with IV contrast is ordered and pending. EKG shows sinus rhythm, no acute ST changes. CBC shows no acute abnormality. CMP shows no acute abnormality. Lipase is 62. CK is 29. Troponin is less than 0.02. Coags show no acute abnormality. Ua is negative for acute infection. Chest x-ray shows no acute cardiopulmonary findings identified, swelling osteophyte with ankylosis of the thoracic vertebral bodies suggesting possible ankylosing spondylitis, exam appears stable since December 26, 2016. CT abdomen/pelvis with IV contrast shows no definite acute abnormality is seen; mild hiatal hernia; Status post bowel surgery with bowel anastomosis sutures seen at the inferior aspect of the stomach with an anastomosis of the small bowel. There is also a separate area of small bowel anastomosis sutures; Hepatic steatosis; Calcified granulomas in the spleen; Mild dilatation of the common bile duct likely reflecting a reservoir phenomenon following cholecystectomy. This appearance is unchanged; Hernia mesh at the under surface of the anterior abdominal wall. I Discussed with the patient that she needs to follow up outpatient with a Ecommerce Marketing Manager. I'll give her the name and number of our GI doctor on-call today. She verbalizes agreement. The patient was discharged in stable condition with instructions, including return instructions and follow up instructions. Diagnosis Primary Impression: Chronic abdominal pain Referrals: Chi Cisneros MD call for appointment Patient Instructions: Abdominal Pain (ED), General Instructions Additional Instructions: Follow-up with appeals officer. Return to the emergency department for any acute worsening of symptoms. Med/Other Pt SpecificInfo: No Change to Meds Disposition: 01 DISCHARGE HOME Condition: Stable DarshanSeven stevensAnika ARNP Jul 21, 2017 19:04
[2017-07-21 19:07] LABS: BASOPHIL # 0.1 TH/MM3 (0-0.2); BASOPHIL % 0.6 % (0.0-2.0); EOSINOPHIL # 3.7 TH/MM3 (0-0.4); EOSINOPHIL % 33.3 % (0.0-4.0); HEMATOCRIT 43.6 % (35.0-46.0); HEMO FLAGS DIFF FINAL; LYMPH % 26.4 % (9.0-44.0); LYMPHOCYTE # 2.9 TH/MM3 (1.0-4.8); MEAN CELL VOLUME 90.2 FL (80.0-100.0); MEAN CORPUSCULAR HEMOGLOBIN 31.6 PG (27.0-34.0); MONO % 2.8 % (0.0-8.0); NEUT % 36.9 % (16.0-70.0); PLATELET COUNT 109 TH/MM3 (150-450); RED BLOOD COUNT 4.83 MIL/MM3 (4.00-5.30); RED CELL DISTRIBUTION WIDTH 14.3 % (11.6-17.2)
[2017-07-21 19:23] LABS: ALT (GPT) 26 U/L (10-53); ANION GAP 8 MEQ/L (5-15); AST (GOT) 35 U/L (15-37); BICARBONATE 30.4 MEQ/L (21.0-32.0); BLOOD UREA NITROGEN 5 MG/DL (7-18); CHLORIDE 101 MEQ/L (98-107); GLOMERULAR FILTRATION RATE 92 ML/MIN (>89); POTASSIUM 3.8 MEQ/L (3.5-5.1); SODIUM (NA) 139 MEQ/L (136-145)
[2017-07-21 19:26] LABS: BACTERIA, URINE OCC /hpf; BLOOD, URINE NEG (NEG); COMMENT (UR) CULT NOT INDICATED; CULTURE IF INDICATED CULT NOT INDICATED; GLUCOSE,URINE NEG (NEG); KETONE, URINE NEG (NEG); NITRITE,URINE NEG (NEG); SQUAMOUS EPITHELIAL CELL URINE 1 /hpf (0-5); URINE COLOR LIGHT-YELLOW (YELLW/STRAW)
[2017-07-21 19:27] LABS: ALKALINE PHOSPHATASE 249 U/L (45-117); TOTAL BILIRUBIN ADULT 0.5 MG/DL (0.2-1.0)
[2017-07-21 19:36] LABS: CREATINE KINASE 29 U/L (26-192)
[2017-07-21 19:46] LABS: APTT (PATIENT) 42.2 SEC (24.3-30.1); INTERNATIONAL NORMALIZED RATIO 1.1 RATIO; PROTHROMBIN TIME - PATIENT 11.8 SEC (9.8-11.6)
[2017-07-21] MEDS ORDERED: IOHEXOL 350 MG/ML 10 ML VIAL (for RAD DIAG) IVCONTRAST ONE (19:48)
[2017-07-21 20:15] VITALS: BP 137/78; PULSE 89; RESP 18; O2SAT 98
--- NOTE | 2017-07-21 20:56 | RADRPT ---
EXAM DATE/TIME: 07/21/2017 19:35 [facility] COMPARISON: CT ABDOMEN & PELVIS W CONTRAST, April 24, 2016, 20:28. INDICATIONS : Epigastric pain for two days. IV CONTRAST: 75 cc Omnipaque 350 (iohexol) IV ORAL CONTRAST: No oral contrast ingested. RADIATION DOSE: 13.31 CTDIvol (mGy) MEDICAL HISTORY : Hypertension. Gastroesophageal reflux disease. SURGICAL HISTORY : Tubal ligation. Cholecystectomy. Appendectomy. Hernia repair. ENCOUNTER: Initial ACUITY: 2 days PAIN SCALE: 7/10 LOCATION: Epigastric abdomen TECHNIQUE: Volumetric scanning of the abdomen and pelvis was performed. Using automated exposure control and adjustment of the mA and/or kV according to patient size, radiation dose was kept as low as reasonably achievable to obtain optimal diagnostic quality images. DICOM format image data is av ailable electronically for review and comparison. FINDINGS: There is diffuse decreased attenuation to the liver. The patient is status post cholec ystectomy. Multiple calcified granulomas are seen in the spleen. There is some fatty atrophy of the pancreas. No pancreatic mass is seen. The common bile duct is prominent measuring 1 cm. This like ly reflects a reservoir phenomenon following cholecystectomy. This appearance is unchanged from the prior exam. The adrenal glands are normal. Both kidney stones appear normal. There are scattered a therosclerotic calcifications seen throughout the study. Coronary artery calcifications are seen. Th e abdominal aorta measures up to 2.9 cm. Hernia mesh is seen at the under surface of the anterior ab dominal wall. Bowel sven are seen at the inferior aspect of the stomach. Bowel sven are also seen in the proximal small bowel. There is a mild hiatal hernia present. The appendix is not seen. Significant inflammatory change in the right lower quadrant is not seen. Significant inflammatory ch essence throughout the abdomen and pelvis is not seen. The pelvic structures appear grossly normal. There is some minimal suspected atelectasis in the right middle lobe. There is degenerative change in the lumbar spine. CONCLUSION: 1. No definite acute abnormality is seen. 2. Mild hiatal hernia. 3. Status post bowel surgery with bowel anastomosis sutures seen at the inferior aspect of the stomac h with an anastomosis of the small bowel. There is also a separate area of small bowel anastomosis s utures. 4. Hepatic steatosis. 5. Calcified granulomas in the spleen. 6. Mild dilatation of the common bile duct likely reflecting a reservoir phenomenon following cholecy stectomy. This appearance is unchanged. 7. Hernia mesh at the under surface of the anterior abdominal wall. Zachary Mann MD on July 21, 2017 at 20:41 Board Certified Radiologist. This report was verified electronically.
--- NOTE | 2017-07-22 14:17 | EKG ---
Date Performed: 07/21/2017 Time Performed: 20:03:33 PTAGE: 72 years EKG: Sinus rhythm NONSPECIFIC T-WAVE ABNORMALITY BORDERLINE ECG PREVIOUS TRACING : 12/24/2016 05.30 Compared to prior tracing no significant change DOCTOR: Allan Maciel Interpretating Date/Time 07/22/2017 14:11:31
== END 2017-07-21 21:41 | disposition home or self-care (01) ==
LOC: NEPC 17:16
DX: R10.84 Generalized abdominal pain (principal); G89.29 Other chronic pain; M10.9 Gout, unspecified; J45.909 Unspecified asthma, uncomplicated; I10 Essential (primary) hypertension; K21.9 Gastro-esophageal reflux disease without esophagitis; R94.31 Abnormal electrocardiogram [ECG] [EKG]
CPT/HCPCS: 71020; 74177; 80053; 81001; 82550; 83690; 84484; 85025; 85610; 85730; 93005; 96361; 96374; 96375; 99285; J2270; J2405; J7030; Q9967

== ENCOUNTER 2017-07-25 15:32 | Emergency (ER) | payer OTHER ==
[~2017-07-25] VITALS: Ht 157.5 cm; Wt 75.0 kg
[2017-07-25 15:36] VITALS: BP 142/69; PULSE 88; RESP 15; TEMP 97.2; O2SAT 96
[2017-07-25] MEDS ORDERED: SODIUM CHLOR 0.9% 1000 ML INJ 1,000 ML IV SCH (18:10)
[2017-07-25] MEDS ORDERED: ONDANSETRON HCL 4 MG/2 ML VIAL IVP ONE (18:15)
[2017-07-25] MEDS ORDERED: SODIUM CHLORIDE 0.9% FLUSH 10 ML FLUSH IV FLUSH PRN (18:15)
--- NOTE | 2017-07-25 18:25 | PD ---
HPI Chief Complaint: GI Complaint Time Seen by Provider: 17:57 Travel History International Travel<30 days: No Contact w/Intl Traveler<30days: No Traveled to known affect area: No History of Present Illness HPI Patient is a 72-year-old female with history of GERD, hiatal hernia, with the procedure, hypertension, cholecystectomy, appendectomy, small bowel resection, multiple hernia repairs 3, return to the emergency room for evaluation of abdominal pain. Patient reports that she has had abdominal pain for the past 6 months, the abdominal pain is located where she has her scars from her hernia repairs. She reports that he has had multiple surgeons who have operated on her , reports that she cannot remember the last surgeon who operated her. Reports that she does remember seen Dr. Das in the remote past. Patient reports that she has had diffuse abdominal pain with increased nausea vomiting and diarrhea for the past couple days, reports the pain is getting worse. Patient reports that she has not followed-up with a surgeon as she tried making an appointment and was unable to make an appointment. Patient reports "I cannot live like this, there is something wrong." Patient denies any chest pain, denies any shortness of breath. Patient denies any fever or chills, no other complaints. PFSH Past Medical History Arthritis: Yes Asthma: No Blood Disorders: No Anxiety: Yes Depression: Yes Heart Rhythm Problems: No Cancer: No Cardiac Catheterization: No Cardiovascular Problems: Yes High Cholesterol: No Chemotherapy: No Chest Pain: No Congestive Heart Failure: No COPD: No Cerebrovascular Accident: No Diabetes: No Diminished Hearing: No Endocrine: No Gastrointestinal Disorders: Yes (HX OF GERD, HIATAL HERNIA REPAIR ) GERD: Yes Genitourinary: No Hepatitis: No Hiatal Hernia: Yes Hypertension: Yes Immune Disorder: No Implanted Vascular Access Dvce: No Kidney Stones: No Musculoskeletal: Yes (BACK/NECK PROBLEMS, CLAUDIO KNEE PROBLEMS,SPINAL STENOSIS, HNP) Neurologic: Yes Psychiatric: Yes (CLAUSTROPHOBIC) Reproductive: No Respiratory: No Seizures: Yes (FROM DRUG W/D) Thyroid Disease: No Tetanus Vaccination: > 5 Years Influenza Vaccination: No PNEUMOCCOCAL Vaccine (Year): 2 ?: Not Menopausal: Yes Tubal Ligation: Yes Past Surgical History Abdominal Surgery: Yes (PT STATES THE PT ONLY HAD 3 HERNIA OPERATIONS) AICD: No Appendectomy: Yes Arteriovenous Shunt: No Cardiac Surgery: No Cholecystectomy: Yes Coronary Artery Bypass Graft: No Ear Surgery: No Endocrine Surgery: No Eye Surgery: No Genitourinary Surgery: No Gynecologic Surgery: No Joint Replacement: No Neurologic Surgery: No Oral Surgery: No Pacemaker: No Thoracic Surgery: No Other Surgery: Yes Family History Family Myocardial Infarction: Yes (SISTER OPEN HEART) Social History Alcohol Use: No Tobacco Use: No Substance Use: No Allergies-Medications (Allergen,Severity, Reaction): Coded Allergies: Sulfa (Sulfonamide Antibiotics) (Unverified Allergy, Severe, Itching, ) oxycodone (Unverified Allergy, Severe, 07/25/17) aspirin (Unverified Allergy, Intermediate, 07/25/17) Reported Meds & Prescriptions Reported Meds & Active Scripts Active Pravachol (Pravastatin) 20 Mg Tab 20 Mg PO HS Aspirin 325 Mg Tab 325 Mg PO DAILY Reported Xanax (Alprazolam) 1 Mg Tab 1 Mg PO Q8H PRN Review of Systems General / Constitutional: No: Fever Eyes: No: Visual changes HENT: No: Headaches Cardiovascular: No: Chest Pain or Discomfort Respiratory: No: Shortness of Breath Gastrointestinal: Positive: Nausea, Vomiting, Diarrhea, Abdominal Pain Genitourinary: No: Dysuria Musculoskeletal: No: Pain Skin: No Rash Neurologic: No: Weakness Psychiatric: No: Depression Endocrine: No: Polydipsia Hematologic/Lymphatic: No: Easy Bruising Physical Exam Narrative GENERAL: Mild distress SKIN: Focused skin assessment warm/dry. Patient with what appears to be bedbugs crawling all over her skin and clothing HEAD: Atraumatic. Normocephalic. EYES: Pupils equal and round. No scleral icterus. No injection or drainage. ENT: No nasal bleeding or discharge. Mucous membranes pink and moist. NECK: Trachea midline. No JVD. CARDIOVASCULAR: Regular rate and rhythm. No murmur appreciated. RESPIRATORY: No accessory muscle use. Clear to auscultation. Breath sounds equal bilaterally. GASTROINTESTINAL: Abdomen soft, diffusely-tender, nondistended. No rebound or guarding. Hepatic and splenic margins not palpable. MUSCULOSKELETAL: No obvious deformities. No clubbing. No cyanosis. No edema. NEUROLOGICAL: Awake and alert. No obvious cranial nerve deficits. Motor grossly within normal limits. Normal speech. PSYCHIATRIC: Appropriate mood and affect; insight and judgment normal. Data Data Last Documented VS Vital Signs Date Time Temp Pulse Resp B/P (MAP) Pulse Ox O2 Delivery O2 Flow Rate FiO2 07/25/17 19:18 75 18 131/62 (85) 96 Room Air 07/25/17 15:36 97.2 Orders Orders Complete Blood Count With Diff (07/25/17 18:10) Comprehensive Metabolic Panel (07/25/17 18:10) Lipase (07/25/17 18:10) Prothrombin Time / Inr (Pt) (07/25/17 18:10) Act Partial Throm Time (Ptt) (07/25/17 18:10) Urinalysis - C+S If Indicated (07/25/17 18:10) Ct Abd/Pel W Iv Contrast(Rout) (07/25/17 18:10) Iv Access Insert/Monitor (07/25/17 18:10) Ecg Monitoring (07/25/17 18:10) Oximetry (07/25/17 18:10) Ondansetron Inj (Zofran Inj) (07/25/17 18:15) Sodium Chlor 0.9% 1000 Ml Inj (Ns 1000 M (07/25/17 18:10) Sodium Chloride 0.9% Flush (Ns Flush) (07/25/17 18:15) Acetaminophen (Tylenol) (07/25/17 19:00) Iohexol 350 Inj (Omnipaque 350 Inj) (07/25/17 21:23) Potassium Chloride (Kcl) (07/25/17 23:00) Labs Laboratory Tests Test 07/25/17 18:35 07/25/17 19:45 White Blood Count 6.2 TH/MM3 Red Blood Count 4.44 MIL/MM3 Hemoglobin 13.9 GM/DL Hematocrit 40.9 % Mean Corpuscular Volume 92.0 FL Mean Corpuscular Hemoglobin 31.2 PG Mean Corpuscular Hemoglobin Concent 33.9 % Red Cell Distribution Width 14.5 % Platelet Count 86 TH/MM3 Mean Platelet Volume 7.5 FL Neutrophils (%) (Auto) 50.7 % Lymphocytes (%) (Auto) 32.0 % Monocytes (%) (Auto) 6.1 % Eosinophils (%) (Auto) 10.5 % Basophils (%) (Auto) 0.7 % Neutrophils # (Auto) 3.2 TH/MM3 Lymphocytes # (Auto) 2.0 TH/MM3 Monocytes # (Auto) 0.4 TH/MM3 Eosinophils # (Auto) 0.7 TH/MM3 Basophils # (Auto) 0.0 TH/MM3 CBC Comment AUTO DIFF Differential Comment AUTO DIFF CONFIRMED Platelet Estimate LOW Platelet Morphology Comment NORMAL Prothrombin Time 11.8 SEC Prothromb Time International Ratio 1.1 RATIO Activated Partial Thromboplast Time 35.9 SEC Blood Urea Nitrogen 5 MG/DL Creatinine 0.70 MG/DL Random Glucose 101 MG/DL Total Protein 7.8 GM/DL Albumin 3.4 GM/DL Calcium Level 8.5 MG/DL Alkaline Phosphatase 180 U/L Aspartate Amino Transf (AST/SGOT) 44 U/L Alanine Aminotransferase (ALT/SGPT) 30 U/L Total Bilirubin 0.6 MG/DL Sodium Level 139 MEQ/L Potassium Level 3.4 MEQ/L Chloride Level 102 MEQ/L Carbon Dioxide Level 31.1 MEQ/L Anion Gap 6 MEQ/L Estimat Glomerular Filtration Rate 82 ML/MIN Lipase 54 U/L Urine Color LIGHT-YELLOW Urine Turbidity CLEAR Urine pH 6.0 Urine Specific [place] 1.006 Urine Protein 30 mg/dL Urine Glucose (UA) NEG mg/dL Urine Ketones NEG mg/dL Urine Occult Blood SMALL Urine Nitrite NEG Urine Bilirubin NEG Urine Urobilinogen LESS THAN 2.0 MG/DL Urine Leukocyte Esterase MOD Urine RBC 0-3 /hpf Urine WBC 3-5 /hpf Urine Squamous Epithelial Cells 0-5 /hpf Urine Bacteria OCC /hpf Urine Mucus RARE /lpf Urine Yeast (Budding) RARE Microscopic Urinalysis Comment CULT NOT INDICATED MDM Medical Decision Making Medical Screen Exam Complete: Yes Emergency Medical Condition: Yes Medical Record Reviewed: Yes Interpretation(s) Vital Signs Date Time Temp Pulse Resp B/P (MAP) Pulse Ox O2 Delivery O2 Flow Rate FiO2 07/25/17 18:00 20 07/25/17 15:36 97.2 88 15 142/69 (93) 96 Differential Diagnosis Acute on chronic pain, gastroenteritis, gastritis, electrolyte abnormality, pancreatitis Narrative Course During the course of the patients emergency department visit, the patients history, examination, and differential diagnosis were reviewed with the patient. The patient was placed on a induction heat treater with oximetry and frequent blood pressure monitoring. The patient had a 20 gauge IV access obtained and blood work sent for analysis. The patient was initially provided IVF, IV zofran The patients laboratory studies were reviewed and remarkable for: CBC & BMP Diagram 07/25/17 18:35 Total Protein 7.8 #, Albumin 3.4, Calcium Level 8.5, Alkaline Phosphatase 180 H , Aspartate Amino Transf (AST/SGOT) 44 H, Alanine Aminotransferase (ALT/SGPT) 30 , Total Bilirubin 0.6 Radiology studies were reviewed and remarkable for: Last Impressions Abdomen/Pelvis CT 07/25/17 1810 Signed Impressions: Service Date/Time: Tuesday, July 25, 2017 21:16 - CONCLUSION: 1. No acute abnormality seen. 2. Hepatic steatosis. 3. Hernia mesh at the anterior abdominal wall without a hernia seen. 4. Mild hernia. 5. Atherosclerotic change of the aorta. 6. Degenerative change of the lumbar spine. Zachary Mann MD Patient with no acute abnormality seen on CAT scan. Discussed with patient that she needs to follow-up with general surgery, signs and symptoms of when to return to the emergency room was reviewed patient in detail. Patient was given a copy of her labs and studies at discharge. Abdomen is soft, nontender, nondistended, no peritoneal signs at discharge. Diagnosis Primary Impression: Chronic pain Additional Impressions: Abdominal pain Thrombocytopenia Hypokalemia Infestation by bed bug Referrals: Garrett Das MD Patient Instructions: General Instructions Additional Instructions: Please provide patient with a copy of their lab work and studies at discharge* * Please follow up with your primary care doctor in 2-3 days Return to the ER if symptoms worsen or progress Return to the ER as needed Please follow-up with Gen. surgery as soon as possible Disposition: 01 DISCHARGE HOME Condition: Stable Tatiana Aleman DO Jul 25, 2017 18:25
[2017-07-25 18:26] VITALS: RESP 20; O2SAT 98
[2017-07-25 18:27] VITALS: BP 159/72; PULSE 75; RESP 20; O2SAT 98
[2017-07-25] MEDS ORDERED: ACETAMINOPHEN 325 MG TAB PO ONE (19:00)
[2017-07-25 19:09] LABS: AUTOMATED NEUTROPHIL # 3.2 TH/MM3 (1.8-7.7); BASOPHIL % 0.7 % (0.0-2.0); EOSINOPHIL # 0.7 TH/MM3 (0-0.4); EOSINOPHIL % 10.5 % (0.0-4.0); HEMATOCRIT 40.9 % (35.0-46.0); MEAN CORPUSCULAR HEMOGLOBIN 31.2 PG (27.0-34.0); MEAN CORPUSCULAR HGB CONC 33.9 % (32.0-36.0); MONO % 6.1 % (0.0-8.0); NEUT % 50.7 % (16.0-70.0); PLATELET COUNT 86 TH/MM3 (150-450); RED BLOOD COUNT 4.44 MIL/MM3 (4.00-5.30); RED CELL DISTRIBUTION WIDTH 14.5 % (11.6-17.2); WHITE BLOOD COUNT 6.2 TH/MM3 (4.0-11.0)
[2017-07-25 19:14] LABS: APTT (PATIENT) 35.9 SEC (24.3-30.1); INTERNATIONAL NORMALIZED RATIO 1.1 RATIO; PROTHROMBIN TIME - PATIENT 11.8 SEC (9.8-11.6)
[2017-07-25 19:18] VITALS: BP 131/62; PULSE 75; RESP 18; O2SAT 96
[2017-07-25 19:18] LABS: HEMO FLAGS AUTO DIFF
[2017-07-25 19:25] LABS: ALT (GPT) 30 U/L (10-53); ANION GAP 6 MEQ/L (5-15); AST (GOT) 44 U/L (15-37); BICARBONATE 31.1 MEQ/L (21.0-32.0); BLOOD UREA NITROGEN 5 MG/DL (7-18); CHLORIDE 102 MEQ/L (98-107); GLOMERULAR FILTRATION RATE 82 ML/MIN (>89); POTASSIUM 3.4 MEQ/L (3.5-5.1); SODIUM (NA) 139 MEQ/L (136-145)
[2017-07-25 19:28] LABS: ALKALINE PHOSPHATASE 180 U/L (45-117); TOTAL BILIRUBIN ADULT 0.6 MG/DL (0.2-1.0)
[2017-07-25 19:49] LABS: PLATELET ESTIMATE SMEAR LOW (NORMAL); PLATELET MORPHOLOGY NORMAL (NORMAL); SCAN/DIFF AUTO DIFF CONFIRMED
[2017-07-25 20:28] LABS: BLOOD, URINE SMALL (NEG); GLUCOSE,URINE NEG (NEG); KETONE, URINE NEG (NEG); NITRITE,URINE NEG (NEG); URINE COLOR LIGHT-YELLOW (YELLW/STRAW)
[2017-07-25 20:49] LABS: MUCUS URINE RARE /lpf (OCC)
[2017-07-25 20:50] LABS: BACTERIA, URINE OCC /hpf; COMMENT (UR) CULT NOT INDICATED; CULTURE IF INDICATED CULT NOT INDICATED; RBC, URINE 0-3 /hpf (0-3); SQUAMOUS EPITHELIAL CELL URINE 0-5 /hpf (0-5)
[2017-07-25] MEDS ORDERED: IOHEXOL 350 MG/ML 10 ML VIAL (for RAD DIAG) IVCONTRAST ONE (21:23)
--- NOTE | 2017-07-25 22:36 | RADRPT ---
EXAM DATE/TIME: 07/25/2017 21:16 [facility] COMPARISON: CT ABDOMEN & PELVIS W CONTRAST, July 21, 2017, 19:35. INDICATIONS : Abdominal pain, nausea and vomiting. IV CONTRAST: 69 cc Omnipaque 350 (iohexol) IV ORAL CONTRAST: No oral contrast ingested. RADIATION DOSE: 15.92 CTDIvol (mGy) MEDICAL HISTORY : Cardiovascular disease. Hypertension. hiatal hernia SURGICAL HISTORY : Appendectomy. Cholecystectomy.Tubal ligation. ENCOUNTER: Subsequent ACUITY: 3 days PAIN SCALE: 6/10 LOCATION: abdomen TECHNIQUE: Volumetric scanning of the abdomen and pelvis was performed. Using automated exposure control and ad justment of the mA and/or kV according to patient size, radiation dose was kept as low as reasonably achievable to obtain optimal diagnostic quality images. DICOM format image data is available electro nically for review and comparison. FINDINGS: LOWER LUNGS: The visualized lower lungs are clear. LIVER: There is hepatic steatosis. The patient is status post cholecystectomy. SPLEEN: Multiple calcified granulomas are seen. PANCREAS: Within normal limits. KIDNEYS: Normal in size and shape. There is no mass, stone or hydronephrosis. ADRENAL GLANDS: Within normal limits. VASCULAR: The mid abdominal aorta measures 2.9 cm. BOWEL/MESENTERY: There is a mild hiatal hernia. ABDOMINAL WALL: Hernia mesh is seen at the anterior abdominal wall. RETROPERITONEUM: There is no lymphadenopathy. BLADDER: No wall thickening or mass. REPRODUCTIVE: Within normal limits. INGUINAL: There is no lymphadenopathy or hernia. MUSCULOSKELETAL: There is degenerative change in the lumbar spine. CONCLUSION: 1. No acute abnormality seen. 2. Hepatic steatosis. 3. Hernia mesh at the anterior abdominal wall without a hernia seen. 4. Mild hernia. 5. Atherosclerotic change of the aorta. 6. Degenerative change of the lumbar spine. Zachary Mann MD on July 25, 2017 at 22:30 Board Certified Radiologist. This report was verified electronically.
[2017-07-25] MEDS ORDERED: POTASSIUM CHLORIDE 10 MEQ CONTROLLED RELEASE TAB PO ONE (23:00)
== END 2017-07-25 23:30 | disposition home or self-care (01) ==
LOC: NEPD 15:32
DX: G89.29 Other chronic pain (principal); R10.84 Generalized abdominal pain; D69.6 Thrombocytopenia, unspecified; E87.6 Hypokalemia; B88.8 Other specified infestations
CPT/HCPCS: 74177; 80053; 81001; 83690; 85025; 85610; 85730; 96361; 96374; 99285; J2405; J7030; Q9967